=== PATIENT | female | born 1970 | race American Indian/Alaskan Native ===

== ENCOUNTER 2017-02-15 22:25 | Emergency (ER) | payer MEDICAID ==
[2017-02-15 23:43] LABS: Basophils % (Auto) 0.5 % (0.0-1.8); Eosinophils % (Auto) 2.3 % (0.0-4.3); Hematocrit 36.4 % (30.3-42.9); Hemoglobin 11.6 gm/dl (10.1-14.3); Mean Corpuscular HGB Conc 32 % (30-34); Mean Corpuscular Hemoglobin 29 pg (28-32); Mean Corpuscular Volume 91 fl (79-97); Platelet Count 229 K/mm3 (140-440); Red Blood Count 4.02 M/mm3 (3.65-5.03); Red Cell Distribution Width 14.5 % (13.2-15.2); White Blood Count 6.5 K/mm3 (4.5-11.0)
[2017-02-15 23:45] LABS: Alanine Aminotransferase 11 units/L (7-56); Albumin/Globulin Ratio 1.4 %; Alkaline Phosphatase 56 units/L (35-129); BUN/Creatinine Ratio 18.33; Bilirubin,Total < 0.20 mg/dL (0.1-1.2); Blood Urea Nitrogen 11 mg/dL (7-17); Calcium 8.2 mg/dL (8.4-10.2); Carbon Dioxide 25 mmol/L (22-30); Glucose 91 mg/dL (65-100); Total Protein 6.8 g/dL (6.3-8.2)
[2017-02-15 23:46] LABS: Anion Gap 17 mmol/L; Chloride 101.9 mmol/L (98-107); Potassium 4.2 mmol/L (3.6-5.0); Sodium 140 mmol/L (137-145)
[2017-02-16] MEDS ORDERED: NACL 0.9% 1000 ML 1,000 ML IV ONE ×2 (07:29→09:43)
[2017-02-16 07:36] LABS: Bilirubin,Urine NEG (Negative); Blood,Urine LG (Negative); Ketones,Urine NEG (Negative); Leukocyte Esterase,Urine TR (Negative); Mucus,Urine FEW /HPF; Nitrite,Urine NEG (Negative); Protein,Urine <15 mg/dL mg/dL (Negative); Urobilinogen,Urine < 2.0 mg/dL (<2.0)
[2017-02-16 07:38] LABS: RBC,Urine > 182.0 /HPF (0.0-6.0)
--- NOTE | 2017-02-16 07:53 | Emergency Department Report ---
ED Dizziness HPI - General Chief Complaint: Vaginal Bleeding Stated Complaint: VAG BLEEDING/CONSTANT URINATION Time Seen by Provider: 02/16/17 07:17 Source: patient Mode of arrival: Ambulatory Limitations: No Limitations - History of Present Illness Initial Comments: 46 yo female with a past medical history asthma, chronic back pain, fibroids with a history of anemia requiring blood transfusion process the hospital with complaints of lightheadedness 1 week. Symptoms worse with standing and activity. Lightheadedness is intermittent. Patient thought she might be anemic and last required a blood transfusion 2 years ago. She has a history uterine fibroids and has been having intermittent heavy vaginal bleeding. 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 Patient also had a menstrual cycle 2 weeks prior and in early January. Patient was started on progesterone by her primary FREIGHT RATE CLERK. Patient took 3 doses and discontinued the medication because she did not like she felt on the meds. Patient is taking iron tablets. No pain reported. He shouldn't denies chest pain, shortness of breath, nausea, vomiting, diarrhea, melena, hematochezia, or decreased by mouth intake. - Related Data Home Medications Medication Instructions Recorded Confirmed Last Taken Cyclobenzaprine [Flexeril] 10 mg PO BID PRN 07/05/16 02/16/17 Unknown Fluticasone [Flonase] 1 spray NS QDAY 07/05/16 02/16/17 Unknown Pregabalin [Lyrica] 75 mg PO QDAY 07/05/16 02/16/17 Unknown Ferrous Sulfate [Feosol] 325 mg PO BID 02/16/17 02/16/17 Unknown medroxyPROGESTERone ACETATE 5 mg PO QDAY 02/16/17 02/16/17 Unknown [Provera] Previous Rx's Medication Instructions Recorded Last Taken Type Nitrofurantoin [place]/M-Cryst 100 mg PO Q12HR #10 capsule 02/16/17 Unknown Rx [Macrobid CAP] Allergies Allergy/AdvReac Type Severity Reaction Status Date / Time No Known Allergies Allergy Unverified 03/30/15 13:51 ED Review of Systems ROS: Stated complaint: VAG BLEEDING/CONSTANT URINATION Other details as noted in HPI Comment: All other systems reviewed and negative Other: Constitutional: No fevers chills Eyes: No eye pain visual changes ENT: No ear pain or throat pain Neck: Denies pain Respiratory: Denies cough wheezing shortness of breath Cardiovascular: Denies chest pain, palpitations, syncope GI: Denies abdominal pain, nausea, vomiting, diarrhea : Denies dysuria, urinary frequency, or urgency Musculoskeletal: Denies back pain Skin: Denies rash, lesions, erythema Neurologic: Denies headache, numbness, weakness Psychiatric: Denies suicidal ideation, hallucinations ED Past Medical Hx - Past Medical History Hx Congestive Heart Failure: No Hx Diabetes: No Hx Asthma: Yes Hx COPD: No Additional medical history: 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 Fibroids, anemia, 5 herniated discs - Surgical History Past Surgical History?: No - Social History Smoking Status: Never Smoker Substance Use Type: None - Medications Home Medications: Home Medications Medication Instructions Recorded Confirmed Last Taken Type Cyclobenzaprine [Flexeril] 10 mg PO BID PRN 07/05/16 02/16/17 Unknown History Fluticasone [Flonase] 1 spray NS QDAY 07/05/16 02/16/17 Unknown History Pregabalin [Lyrica] 75 mg PO QDAY 07/05/16 02/16/17 Unknown History Ferrous Sulfate [Feosol] 325 mg PO BID 02/16/17 02/16/17 Unknown History Nitrofurantoin [place]/M-Cryst 100 mg PO Q12HR #10 capsule 02/16/17 Unknown Rx [Macrobid CAP] medroxyPROGESTERone ACETATE 5 mg PO QDAY 02/16/17 02/16/17 Unknown History [Provera] ED Physical Exam - General Limitations: No Limitations - Other Other exam information: General: No limitations, patient is alert in no acute distress Head exam: Atraumatic, normocephalic Eyes exam: Normal appearance ENT: Moist mucous membrane, normal oropharynx Neck exam: Normal inspection, full range of motio Respiratory exam: Clear to auscultation bilateral, no wheezes, rales, crackles Cardiovascular: Normal rate and rhythm, normal heart sounds Abdomen: Soft, nondistended, and nontender, with normal bowel sounds, no rebound, or guarding Extremity: Full range of motion normal inspection no deformity Back: Normal Inspection, full range of motion, no tenderness Neurologic: Alert, oriented x3, cranial nerves intact, no motor or sensory deficit Psychiatric: normal affect, normal mood Skin: Warm, dry, intact ED Course Vital Signs 02/15/17 02/16/17 02/16/17 22:53 03:58 05:25 Temperature 97.9 F Pulse Rate 73 72 Respiratory 20 18 Rate Blood Pressure 120/55 Blood Pressure 112/49 [Right] O2 Sat by Pulse 100 100 100 Oximetry 02/16/17 02/16/17 02/16/17 05:31 05:32 06:00 Temperature Pulse Rate 76 Respiratory 16 Rate Blood Pressure 85/41 99/45 Blood Pressure 100/47 [Right] O2 Sat by Pulse 99 100 100 Oximetry 02/16/17 02/16/17 02/16/17 06:33 07:00 07:43 Temperature Pulse Rate Respiratory Rate Blood Pressure 99/45 92/54 104/60 Blood Pressure [Right] O2 Sat by Pulse 96 100 100 Oximetry 02/16/17 02/16/17 02/16/17 08:00 08:30 09:31 Temperature Pulse Rate Respiratory Rate Blood Pressure 97/45 91/44 93/60 Blood Pressure [Right] O2 Sat by Pulse 100 100 100 Oximetry 02/16/17 02/16/17 02/16/17 10:04 10:43 11:00 Temperature Pulse Rate Respiratory Rate Blood Pressure 93/60 93/60 111/76 Blood Pressure [Right] O2 Sat by Pulse 89 100 Oximetry - Reevaluation(s) Reevaluation #1: 02/16/17 11:44 Patient was orthostatic with mild hypotension that improved with IV fluids. ED Medical Decision Making - Lab Data Result diagrams: 02/15/17 23:05 02/15/17 23:05 Lab Results 02/15/17 02/15/17 02/16/17 Range/Units 23:05 23:05 06:50 WBC 6.5 (4.5-11.0) K/mm3 RBC 4.02 (3.65-5.03) M/mm3 Hgb 11.6 (10.1-14.3) gm/dl Hct 36.4 (30.3-42.9) % MCV 91 (79-97) fl MCH 29 (28-32) pg MCHC 32 (30-34) % RDW 14.5 (13.2-15.2) % Plt Count 229 (140-440) K/mm3 Lymph % (Auto) 30.4 (13.4-35.0) % [place] % (Auto) 11.0 H (0.0-7.3) % Eos % (Auto) 2.3 (0.0-4.3) % Baso % (Auto) 0.5 (0.0-1.8) % Lymph # 2.0 (1.2-5.4) K/mm3 [place] # 0.7 (0.0-0.8) K/mm3 Eos # 0.1 (0.0-0.4) K/mm3 Baso # 0.0 (0.0-0.1) K/mm3 Seg Neutrophils % 55.8 (40.0-70.0) % Seg Neutrophils # 3.6 (1.8-7.7) K/mm3 Sodium 140 (137-145) mmol/L Potassium 4.2 (3.6-5.0) mmol/L Chloride 101.9 (98-107) mmol/L Carbon Dioxide 25 (22-30) mmol/L Anion Gap 17 mmol/L BUN 11 (7-17) mg/dL Creatinine 0.6 L (0.7-1.2) mg/dL Estimated GFR > 60 ml/min BUN/Creatinine Ratio 18.33 % Glucose 91 (65-100) mg/dL Calcium 8.2 L (8.4-10.2) mg/dL Total Bilirubin < 0.20 (0.1-1.2) mg/dL AST 14 (5-40) units/L ALT 11 (7-56) units/L Alkaline Phosphatase 56 (35-129) units/L Total Protein 6.8 (6.3-8.2) g/dL Albumin 4.0 (3.9-5) g/dL Albumin/Globulin Ratio 1.4 % Urine Color Yellow (Yellow) Urine Turbidity Clear (Clear) Urine pH 5.0 (5.0-7.0) Ur Specific [place] 1.010 (1.003-1.030) Urine Protein <15 mg/dl (Negative) mg/dL Urine Glucose (UA) Neg (Negative) mg/dL Urine Ketones Neg (Negative) mg/dL Urine Blood Lg (Negative) Urine Nitrite Neg (Negative) Urine Bilirubin Neg (Negative) Urine Urobilinogen < 2.0 (<2.0) mg/dL Ur Leukocyte Esterase Tr (Negative) Urine WBC (Auto) 94.0 H (0.0-6.0) /HPF Urine RBC (Auto) > 182.0 (0.0-6.0) /HPF Urine Mucus Few /HPF Urine Yeast (Budding) Not Reportable Urine HCG, Qual Negative (Negative) - Medical Decision Making Patient is UA shows a large amount of blood in leukocytosis. This could be secondary to vaginal bleeding but she will be covered with antibiotics/Macrobid for UTI as well. Patient symptoms improving with IV fluids. Patient was experiencing orthostatic dizziness however BP was increased with standing and decreases with lying supine. Systolic improved with 2 L of fluids as well as symptoms. Patient has been here in the past and seen by me with orthostatic dizziness that improved with IV hydration. No signs of anemia requiring blood transfusion at this time. She'll be discharged home and encouraged follow-up with her doctors. - Differential Diagnosis dehydration, anemia, orthostatic hypotension Critical Care Time: No Critical care attestation.: If time is entered above; I have spent that time in minutes in the direct care of this critically ill patient, excluding procedure time. ED Disposition Clinical Impression: Orthostatic dizziness, Urine leukocytes increased, Menometrorrhagia, History of uterine fibroid Disposition: DISCHARGED TO HOME OR SELFCARE Is pt being admited?: No Does the pt Need Aspirin: No Condition: Stable Instructions: Uterine Fibroids (ED), Menorrhagia (ED), Lightheadedness (ED), Urinary Tract Infection in Women (ED) Additional Instructions: Continue to drink plenty of fluids. Follow-up with your doctor. Return if symptoms worsen. Prescriptions: Nitrofurantoin [place]/M-Cryst [Macrobid CAP] 100 mg PO Q12HR #10 capsule Referrals: PRIMARY CARE, [Primary Care Provider] - 3-5 Days Time of Disposition: 11:51
[2017-02-16 11:28] VITALS: BP 111/76
[2017-02-16] MEDS ORDERED: MACROBID PO ONE (11:44)
== END 2017-02-16 12:06 | disposition home or self-care (01) ==
LOC: ED 22:25
DX: R42 Dizziness and giddiness (principal); N92.1 Excessive and frequent menstruation with irregular cycle; R82.99 Other abnormal findings in urine; J45.909 Unspecified asthma, uncomplicated; G89.29 Other chronic pain; D25.9 Leiomyoma of uterus, unspecified
CPT/HCPCS: 36415; 80053; 81001; 81025; 85025; 96360; 96361; 99283; J7030

== ENCOUNTER 2017-02-20 20:40 | Emergency (ER) | payer MEDICAID ==
[2017-02-20 21:44] LABS: Anion Gap 14 mmol/L; BUN/Creatinine Ratio 11.42; Blood Urea Nitrogen 8 mg/dL (7-17); Calcium 8.9 mg/dL (8.4-10.2); Carbon Dioxide 28 mmol/L (22-30); Glucose 82 mg/dL (65-100); Potassium 3.8 mmol/L (3.6-5.0); Sodium 139 mmol/L (137-145)
[2017-02-20 21:55] LABS: Basophils % (Auto) 0.4 % (0.0-1.8); Eosinophils % (Auto) 1.3 % (0.0-4.3); Hematocrit 32.9 % (30.3-42.9); Hemoglobin 10.7 gm/dl (10.1-14.3); Mean Corpuscular HGB Conc 33 % (30-34); Mean Corpuscular Hemoglobin 29 pg (28-32); Mean Corpuscular Volume 90 fl (79-97); Platelet Count 239 K/mm3 (140-440); Red Blood Count 3.64 M/mm3 (3.65-5.03); Red Cell Distribution Width 14.2 % (13.2-15.2); White Blood Count 7.7 K/mm3 (4.5-11.0)
[2017-02-20] MEDS ORDERED: ANTIVERT PO ONE (22:20)
--- NOTE | 2017-02-20 22:31 | Emergency Department Report ---
HPI - General Chief Complaint: Dizziness Time Seen by Provider: 02/20/17 22:06 - HPI HPI: Room 4 The patient is a 46-year-old female presenting with a chief complaint of dizziness. The patient states she has a history of menorrhagia and developed vaginal bleeding 5 2016. The patient states she was gone through approximately 10 pads per day. 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 The patient states she took it for 3 days but then stopped because she did not like the way he was making her feel which included dizziness, body feeling heavy and associated nausea. Patient came to the ED 02/14/2017 was diagnosed with a UTI and started on antibiotics. Patient states her vaginal bleeding has slowed down to approximate 7-8 pads daily but she continues to have dizziness and feeling as though her body is having so she decided to come to the ED today. Patient denies any other complaints Location: [see above] Duration: [see above] Quality: Dizziness Severity: Moderate Modifying factors: [see above] Context: [see above] Mode of transportation: Unknown ED Past Medical Hx - Past Medical History Previous Medical History?: Yes Hx Asthma: Yes Additional medical history: 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 Fibroids, anemia, 5 herniated discs - Surgical History Past Surgical History?: Yes - Family History Family history: no significant - Social History Smoking Status: Never Smoker Substance Use Type: None - Medications Home Medications: Home Medications Medication Instructions Recorded Confirmed Last Taken Type Cyclobenzaprine [Flexeril] 10 mg PO BID PRN 07/05/16 02/16/17 Unknown History Fluticasone [Flonase] 1 spray NS QDAY 07/05/16 02/16/17 Unknown History Pregabalin [Lyrica] 75 mg PO QDAY 07/05/16 02/16/17 Unknown History Ferrous Sulfate [Feosol] 325 mg PO BID 02/16/17 02/16/17 Unknown History Nitrofurantoin [place]/M-Cryst 100 mg PO Q12HR #10 capsule 02/16/17 Unknown Rx [Macrobid CAP] medroxyPROGESTERone ACETATE 5 mg PO QDAY 02/16/17 02/16/17 Unknown History [Provera] Meclizine [Antivert] 25 mg PO TID PRN #20 tablet 02/21/17 Unknown Rx ED Review of Systems ROS: Stated complaint: WEAKNESS/REACTION TO MEDS Other details as noted in HPI Comment: All other systems reviewed and negative Constitutional: denies: chills, fever Eyes: denies: eye pain, eye discharge, vision change ENT: denies: ear pain, throat pain Respiratory: denies: cough, shortness of breath, wheezing Cardiovascular: denies: chest pain, palpitations Endocrine: no symptoms reported Gastrointestinal: denies: abdominal pain, nausea, diarrhea Genitourinary: abnormal menses Musculoskeletal: denies: back pain, joint swelling, arthralgia Skin: denies: rash, lesions Neurological: vertigo Psychiatric: denies: anxiety, depression Hematological/Lymphatic: denies: easy bleeding, easy bruising Physical Exam - Physical Exam Vital Signs: Vital Signs 02/20/17 20:44 Temperature 98.5 F Pulse Rate 91 H Respiratory 18 Rate Blood Pressure 132/71 [Right] O2 Sat by Pulse 100 Oximetry Physical Exam: GENERAL: The patient is well-developed well-nourished female lying on stretcher not appearing to be in acute distress. [] HEENT: Normocephalic. Atraumatic. Extraocular motions are intact. Patient has moist mucous membranes. NECK: Supple. No meningitic signs are noted. Trachea midline CHEST/LUNGS: Clear to auscultation. There is no respiratory distress noted. HEART/CARDIOVASCULAR: Regular. There is no tachycardia. There is no gallop rub or murmur. ABDOMEN: Abdomen is soft, nontender. Patient has normal bowel sounds. There is no abdominal distention. SKIN: There is no rash. There is no edema. There is no diaphoresis. NEURO: The patient is awake, alert, and oriented. The patient is cooperative. The patient has no focal neurologic deficits. The patient has normal speech. Cranial nerves II through XII grossly intact, no drift, commercial technician equal bilaterally. No dysmetria noted with finger to nose bilaterally MUSCULOSKELETAL: There is no evidence of acute injury. ED Course Vital Signs 02/20/17 20:44 Temperature 98.5 F Pulse Rate 91 H Respiratory 18 Rate Blood Pressure 132/71 [Right] O2 Sat by Pulse 100 Oximetry ED Medical Decision Making - Lab Data Result diagrams: 02/20/17 21:04 02/20/17 21:04 Laboratory Tests 02/20/17 02/20/17 02/20/17 21:04 21:04 21:04 WBC 7.7 RBC 3.64 L Hgb 10.7 Hct 32.9 MCV 90 MCH 29 MCHC 33 RDW 14.2 Plt Count 239 Lymph % (Auto) 25.4 [place] % (Auto) 9.9 H Eos % (Auto) 1.3 Baso % (Auto) 0.4 Lymph # 2.0 [place] # 0.8 Eos # 0.1 Baso # 0.0 Seg Neutrophils % 63.0 Seg Neutrophils # 4.9 Sodium 139 Potassium 3.8 Chloride 101.0 Carbon Dioxide 28 Anion Gap 14 BUN 8 Creatinine 0.7 Estimated GFR > 60 BUN/Creatinine Ratio 11.42 Glucose 82 Calcium 8.9 Total Creatine Kinase CK-MB (CK-2) CK-MB (CK-2) Rel Index Troponin T HCG, Qual Negative Urine Color Urine Turbidity Urine pH Ur Specific [place] Urine Protein Urine Glucose (UA) Urine Ketones Urine Blood Urine Nitrite Urine Bilirubin Urine Urobilinogen Ur Leukocyte Esterase Urine WBC (Auto) Urine RBC (Auto) 02/20/17 02/20/17 21:04 22:30 WBC RBC Hgb Hct MCV MCH MCHC RDW Plt Count Lymph % (Auto) [place] % (Auto) Eos % (Auto) Baso % (Auto) Lymph # [place] # Eos # Baso # Seg Neutrophils % Seg Neutrophils # Sodium Potassium Chloride Carbon Dioxide Anion Gap BUN Creatinine Estimated GFR BUN/Creatinine Ratio Glucose Calcium Total Creatine Kinase 101 CK-MB (CK-2) 2.2 CK-MB (CK-2) Rel Index 2.1 Troponin T < 0.010 HCG, Qual Urine Color Straw Urine Turbidity Clear Urine pH 6.0 Ur Specific [place] 1.002 L Urine Protein <15 mg/dl Urine Glucose (UA) Neg Urine Ketones Neg Urine Blood Lg Urine Nitrite Neg Urine Bilirubin Neg Urine Urobilinogen < 2.0 Ur Leukocyte Esterase Neg Urine WBC (Auto) < 1.0 Urine RBC (Auto) < 1.0 - EKG Data -: EKG Interpreted by Me EKG shows normal: sinus rhythm Rate: normal - EKG Data When compared to previous EKG there are: no significant change Interpretation: unchanged when compared t (07/04/2016) - Radiology Data Radiology results: report reviewed (CT head), image reviewed (CT head) CT head (read by radiologist)-no abnormalities are seen - Differential Diagnosis vertigo, orthostatic hypotension, symptomatic anemia, ACS, rhabdomyolysis Critical care attestation.: If time is entered above; I have spent that time in minutes in the direct care of this critically ill patient, excluding procedure time. ED Disposition Clinical Impression: Dizziness Disposition: DISCHARGED TO HOME OR SELFCARE Is pt being admited?: No Does the pt Need Aspirin: No Condition: Stable Instructions: Vertigo (ED), Dizziness (ED) Additional Instructions: Return to the emergency department immediately should you develop worsening symptoms, fever, inability to tolerate food or liquid or any other concerns. Prescriptions: Meclizine [Antivert] 25 mg PO TID PRN #20 tablet PRN Reason: Vertigo Referrals: PRIMARY CARE, [Primary Care Provider] - 3-5 Days neurology, your neurologist [Other] - 3-5 Days (Keep your appointment with your neurologist for further evaluation) Time of Disposition: 00:32
[2017-02-20 22:43] LABS: Creatine Kinase MB 2.2 ng/mL (0.0-4.0)
[2017-02-20 22:44] LABS: Creatine Kinase 101 units/L (30-135)
[2017-02-20 22:57] LABS: Bilirubin,Urine NEG (Negative); Blood,Urine LG (Negative); Ketones,Urine NEG (Negative); Leukocyte Esterase,Urine NEG (Negative); Nitrite,Urine NEG (Negative); Protein,Urine <15 mg/dL mg/dL (Negative); RBC,Urine < 1.0 /HPF (0.0-6.0); Urobilinogen,Urine < 2.0 mg/dL (<2.0); WBC,Urine < 1.0 /HPF (0.0-6.0)
--- NOTE | 2017-02-20 23:13 | Cat Scan Report ---
FINAL REPORT PROCEDURE: CT HEAD/BRAIN WO CON TECHNIQUE: Computerized tomography of the head was performed without contrast material. HISTORY: dizziness COMPARISON: No prior studies are available for comparison. FINDINGS: Visualized portions of the paranasal sinuses and mastoid air cells are clear. No calvarial fracture is seen. Cerebral ventricles are normal in size. No acute intracranial hemorrhage or mass effect is seen. No CVA is seen. IMPRESSION: No abnormalities are seen.
[2017-02-21] MEDS ORDERED: NACL 0.9% 1000 ML 1,000 ML IV ONE ×2 (00:17)
[2017-02-21 01:14] VITALS: BP 96/47
[2017-02-21] MEDS ORDERED: XYLOCAINE 1% 20 mL INFILTRATI ONE (01:28)
[2017-02-21] MEDS ORDERED: HYDROGEN PEROXIDE TP ONE (01:30)
== END 2017-02-21 01:32 | disposition home or self-care (01) ==
LOC: ED 20:40
DX: R42 Dizziness and giddiness (principal); J45.909 Unspecified asthma, uncomplicated; G89.29 Other chronic pain
CPT/HCPCS: 36415; 70450; 80048; 81001; 82550; 82553; 84484; 84703; 85025; 93005; 93010; 96360; 99284; J7030

== ENCOUNTER 2017-04-14 21:57 | Emergency (ER) | payer MEDICAID ==
[2017-04-15 00:01] LABS: Basophils % (Auto) 0.4 % (0.0-1.8); Eosinophils % (Auto) 1.5 % (0.0-4.3); Hematocrit 31.2 % (30.3-42.9); Hemoglobin 10.1 gm/dl (10.1-14.3); Mean Corpuscular HGB Conc 32 % (30-34); Mean Corpuscular Hemoglobin 29 pg (28-32); Mean Corpuscular Volume 91 fl (79-97); Platelet Count 262 K/mm3 (140-440); Red Blood Count 3.42 M/mm3 (3.65-5.03); Red Cell Distribution Width 13.9 % (13.2-15.2); White Blood Count 7.6 K/mm3 (4.5-11.0)
[2017-04-15 00:19] LABS: Anion Gap 14 mmol/L; BUN/Creatinine Ratio 11.66; Blood Urea Nitrogen 7 mg/dL (7-17); Calcium 7.9 mg/dL (8.4-10.2); Carbon Dioxide 25 mmol/L (22-30); Chloride 103.7 mmol/L (98-107); Glucose 88 mg/dL (65-100); Potassium 3.3 mmol/L (3.6-5.0); Sodium 139 mmol/L (137-145)
[2017-04-15 00:29] LABS: Bacteria,Urine 1+ /HPF (Negative); Bilirubin,Urine NEG (Negative); Blood,Urine LG (Negative); Ketones,Urine NEG (Negative); Leukocyte Esterase,Urine NEG (Negative); Mucus,Urine FEW /HPF; Nitrite,Urine NEG (Negative); Protein,Urine <15 mg/dL mg/dL (Negative); Urobilinogen,Urine < 2.0 mg/dL (<2.0)
[2017-04-15 00:35] LABS: Alanine Aminotransferase 10 units/L (7-56); Albumin 3.8 g/dL (3.9-5); Albumin/Globulin Ratio 1.2 %; Alkaline Phosphatase 50 units/L (35-129); Bilirubin,Total < 0.20 mg/dL (0.1-1.2); Total Protein 6.9 g/dL (6.3-8.2)
[2017-04-15 00:38] LABS: Bilirubin,Direct < 0.2 mg/dL (0-0.2)
--- NOTE | 2017-04-15 07:43 | XRay Report ---
Chest 2 views: History: Lower extremity swelling. CHF. Findings: Normal cardiomediastinal silhouette. Trachea is midline. No consolidation, pneumothorax or pleural effusion. Impression: No acute cardiopulmonary findings.
[2017-04-15] MEDS ORDERED: K-DUR PO ONE (07:49)
--- NOTE | 2017-04-15 08:12 | Emergency Department Report ---
HPI - General Chief Complaint: Extremity Injury, Lower Time Seen by Provider: 04/15/17 07:48 - HPI HPI: This is a 46-year-old Afro-[place] female who presents to the emergency department with a one-day history of swelling in her ankles. This concerned her as she says that the last time this happened she required infusions from anemia. She has a history of fibroids that have caused her to have prolonged menstrual cycles in the past and thus causing the anemia. She says her menstrual cycle is currently actually irregular for her as she only had 2 days of vaginal bleeding which usually has 14. She denies any abdominal pain, chest pain, shortness of breath, nausea, vomiting or fever. She is not taken anything for symptoms prior to presentation. Her primary care doctor is a Dr. Linares through [facility]. No recent travel or sick contacts at home. ED Past Medical Hx - Past Medical History Previous Medical History?: Yes Hx Congestive Heart Failure: No Hx Diabetes: No Hx Asthma: Yes Hx COPD: No Additional medical history: 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 Fibroids, anemia, 5 herniated discs - Surgical History Past Surgical History?: No - Social History Smoking Status: Never Smoker Substance Use Type: None - Medications Home Medications: Home Medications Medication Instructions Recorded Confirmed Last Taken Type Cyclobenzaprine [Flexeril] 10 mg PO BID PRN 07/05/16 02/20/17 02/20/17 History Fluticasone [Flonase] 1 spray NS QDAY 07/05/16 02/20/17 02/20/17 History Pregabalin [Lyrica] 75 mg PO QDAY 07/05/16 02/20/17 02/20/17 History Ferrous Sulfate [Feosol] 325 mg PO BID 02/16/17 02/20/17 02/20/[address] [place]/M-Cryst 100 mg PO Q12HR #10 capsule 02/16/17 02/20/17 Rx [Macrobid CAP] medroxyPROGESTERone ACETATE 5 mg PO QDAY 02/16/17 02/20/17 02/20/17 History [Provera] Meclizine [Antivert] 25 mg PO TID PRN #20 tablet 02/21/17 Unknown Rx ED Review of Systems ROS: Stated complaint: ANKLE EDEMA Other details as noted in HPI Comment: All other systems reviewed and negative Constitutional: denies: chills, fever Eyes: denies: eye pain, eye discharge, vision change ENT: denies: ear pain, throat pain Respiratory: denies: cough, shortness of breath, wheezing Cardiovascular: edema. denies: chest pain Gastrointestinal: denies: abdominal pain, nausea, diarrhea Genitourinary: denies: urgency, dysuria, discharge Musculoskeletal: denies: back pain, joint swelling, arthralgia Skin: denies: rash, lesions Neurological: denies: headache, weakness, paresthesias Physical Exam - Physical Exam Vital Signs: Vital Signs 04/14/17 04/14/17 22:06 22:22 Temperature 98.2 F 98.2 F Pulse Rate 96 H 96 H Respiratory 20 18 Rate Blood Pressure 120/70 Blood Pressure 120/70 [Right] O2 Sat by Pulse 100 100 Oximetry Physical Exam: GENERAL: The patient is well-developed well-nourished. HEENT: Normocephalic. Atraumatic. Extraocular motions are intact. Patient has moist mucous membranes. Pupils equal reactive to light bilaterally. NECK: Supple. Trachea is midline. CHEST/LUNGS: Clear to auscultation. There is no respiratory distress noted. HEART/CARDIOVASCULAR: Regular. There is no tachycardia. There is no gallop rub or murmur. ABDOMEN: Abdomen is soft, nontender. Patient has normal bowel sounds. There is no abdominal distention. SKIN: There is very mild nonpitting swelling to the bilateral ankles. No rash seen. Skin is warm and dry. NEURO: The patient is awake, alert, and oriented. The patient is cooperative. The patient has no focal neurologic deficits. The patient has normal speech and gait. MUSCULOSKELETAL: There is no tenderness or deformity. There is no limitation range of motion. There is no evidence of acute injury. Cap refill less than 2 seconds. Pedal pulses +2 over 4 bilaterally. ED Course Vital Signs 04/14/17 04/14/17 22:06 22:22 Temperature 98.2 F 98.2 F Pulse Rate 96 H 96 H Respiratory 20 18 Rate Blood Pressure 120/70 Blood Pressure 120/70 [Right] O2 Sat by Pulse 100 100 Oximetry ED Medical Decision Making - Lab Data Result diagrams: 04/14/17 23:20 04/14/17 23:20 - Radiology Data Radiology results: image reviewed interpreted by me: Chest x-ray did not show any acute process. Heart is normal shape and size. No effusions. No pneumothorax. No signs of pneumonia seen. - Medical Decision Making 46-year-old female presents the emergency department with the complaint of bilateral ankle swelling going on for about the past 24 hours. There is no chest pain, shortness of breath or any complaints of respiratory distress. There is no signs of any rash or cellulitis. Cap refill less than 2 seconds and good pedal pulses. Nonpitting swelling that is very mild. Patient's labs are mostly unremarkable. There is mild anemia with a hemoglobin of 10 but not that requires any transfusion. A chest x-ray was done last night that did not show any pleural effusions, pneumonia or any acute process. There is a low suspicion that the ankle swelling is due to any type of DVT. Patient does not appear to be in volume overload or CHF. Vital signs stable throughout ED course including being afebrile and no hypoxia. The rest the patient's labs are unremarkable. She appears safe for discharge home at this time. She will use compression and elevation and has been encouraged to follow-up with her primary care physician, Dr. Gao, in the next few days. She will return to the ER with any worsening of her symptoms or any acute distress. - Differential Diagnosis edema, venous stasis, cellulitis Critical Care Time: No Critical care attestation.: If time is entered above; I have spent that time in minutes in the direct care of this critically ill patient, excluding procedure time. ED Disposition Clinical Impression: Mild anemia Ankle swelling Qualifiers: Laterality: unspecified laterality Qualified Code(s): M25.473 - Effusion, unspecified ankle Disposition: DC-01 TO HOME OR SELFCARE Is pt being admited?: No Condition: Stable Instructions: Leg Edema (ED), Anemia (ED) Additional Instructions: Please follow-up with your primary care doctor in the next few days. Return to the emergency department with any worsening of her symptoms, especially if the swelling begins going up the leg, has color change or he develop any chest pain or shortness of breath or any acute distress. Referrals: PRIMARY CARE, [Primary Care Provider] - 3-5 Days Time of Disposition: 08:17
[2017-04-15 09:06] VITALS: BP 126/71
== END 2017-04-15 09:07 | disposition home or self-care (01) ==
LOC: ED 21:57
DX: M25.472 Effusion, left ankle (principal); M25.471 Effusion, right ankle; D64.9 Anemia, unspecified; J45.909 Unspecified asthma, uncomplicated; G89.29 Other chronic pain
CPT/HCPCS: 36415; 71020; 80048; 80074; 81001; 83880; 84702; 85025

== ENCOUNTER 2017-07-21 15:08 | Emergency (ER) | payer MEDICAID ==
[2017-07-21 15:36] VITALS: BP 117/63
[2017-07-21 16:43] LABS: Basophils % (Auto) 0.7 % (0.0-1.8); Eosinophils % (Auto) 2.1 % (0.0-4.3); Hematocrit 27.2 % (30.3-42.9); Hemoglobin 8.8 gm/dl (10.1-14.3); Mean Corpuscular HGB Conc 32 % (30-34); Mean Corpuscular Hemoglobin 29 pg (28-32); Mean Corpuscular Volume 89 fl (79-97); Platelet Count 264 K/mm3 (140-440); Red Blood Count 3.07 M/mm3 (3.65-5.03); Red Cell Distribution Width 13.7 % (13.2-15.2); White Blood Count 4.7 K/mm3 (4.5-11.0)
== END 2017-07-22 00:52 | disposition left against medical advice (07) ==
LOC: ED 15:08
DX: R53.1 Weakness (principal); Z53.21 Procedure and treatment not carried out due to patient leaving prior to being seen by health care provider
CPT/HCPCS: 36415; 84702; 85025; 86850; 86900; 86901

== ENCOUNTER 2017-07-24 20:23 | Emergency (ER) | payer MEDICAID ==
[2017-07-25 00:56] LABS: Basophils % (Auto) 0.3 % (0.0-1.8); Eosinophils % (Auto) 0.9 % (0.0-4.3); Hematocrit 31.1 % (30.3-42.9); Hemoglobin 9.8 gm/dl (10.1-14.3); Mean Corpuscular HGB Conc 32 % (30-34); Mean Corpuscular Hemoglobin 28 pg (28-32); Mean Corpuscular Volume 90 fl (79-97); Platelet Count 333 K/mm3 (140-440); Red Blood Count 3.45 M/mm3 (3.65-5.03); Red Cell Distribution Width 14.2 % (13.2-15.2); White Blood Count 7.7 K/mm3 (4.5-11.0)
[2017-07-25 01:16] LABS: Anion Gap 16 mmol/L; BUN/Creatinine Ratio 8; Blood Urea Nitrogen 5 mg/dL (7-17); Calcium 8.6 mg/dL (8.4-10.2); Carbon Dioxide 26 mmol/L (22-30); Chloride 102.7 mmol/L (98-107); Glucose 82 mg/dL (65-100); Potassium 3.8 mmol/L (3.6-5.0); Sodium 141 mmol/L (137-145)
[2017-07-25 04:53] LABS: Bacteria,Urine 1+ /HPF (Negative); Bilirubin,Urine NEG (Negative); Blood,Urine LG (Negative); Ketones,Urine NEG (Negative); Leukocyte Esterase,Urine NEG (Negative); Mucus,Urine 1+ /HPF; Nitrite,Urine NEG (Negative); Protein,Urine <15 mg/dL mg/dL (Negative); Urobilinogen,Urine < 2.0 mg/dL (<2.0)
[2017-07-25 05:01] LABS: WBC,Urine < 1.0 /HPF (0.0-6.0)
--- NOTE | 2017-07-25 10:37 | Emergency Department Report ---
HPI - General Chief Complaint: Dizziness Time Seen by Provider: 07/25/17 10:33 - HPI HPI: patient with h/o anemia, secondary to fibroid bleeding, is here because she is dizzy and wants to check that her hgb is not too low. ED Past Medical Hx - Past Medical History Previous Medical History?: Yes Hx Congestive Heart Failure: No Hx Diabetes: No Hx Asthma: Yes Hx COPD: No Additional medical history: 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 Fibroids, anemia, 5 herniated discs - Social History Smoking Status: Never Smoker - Medications Home Medications: Home Medications Medication Instructions Recorded Confirmed Last Taken Type Cyclobenzaprine [Flexeril] 10 mg PO BID PRN 07/05/16 02/20/17 02/20/17 History Fluticasone [Flonase] 1 spray NS QDAY 07/05/16 02/20/17 02/20/17 History Pregabalin [Lyrica] 75 mg PO QDAY 07/05/16 02/20/17 02/20/17 History Nitrofurantoin [place]/M-Cryst 100 mg PO Q12HR #10 capsule 02/16/17 02/20/17 Rx [Macrobid CAP] medroxyPROGESTERone ACETATE 5 mg PO QDAY 02/16/17 02/20/17 02/20/17 History [Provera] Meclizine [Antivert] 25 mg PO TID PRN #20 tablet 02/21/17 Unknown Rx Ferrous Sulfate [Feosol 325 MG tab] 325 mg PO BID #60 tablet 07/25/17 Unknown Rx ED Review of Systems ROS: Stated complaint: TRIMMORS,HEAVY BLEEDING Other details as noted in HPI Comment: All other systems reviewed and negative Respiratory: no symptoms reported Cardiovascular: as per HPI Endocrine: no symptoms reported Physical Exam - Physical Exam Vital Signs: Vital Signs 07/24/17 07/24/17 07/25/17 23:18 23:44 05:50 Temperature 98.1 F 98.1 F 97.5 F L Pulse Rate 78 76 Respiratory 18 18 18 Rate Blood Pressure 107/50 107/50 103/46 Blood Pressure [Left] O2 Sat by Pulse 100 100 Oximetry 07/25/17 10:35 Temperature 98.1 F Pulse Rate 80 Respiratory 18 Rate Blood Pressure Blood Pressure 98/51 [Left] O2 Sat by Pulse 100 Oximetry Physical Exam: Physical Exam: Physical Exam: - General Limitations: No Limitations General appearance: alert, in no apparent distress. - Head Head exam: Present: atraumatic, normocephalic - Eye Eye exam: Present: normal appearance - ENT ENT exam: Present: mucous membranes moist - Neck Neck exam: Present: normal inspection - Respiratory Respiratory exam: Present: normal lung sounds bilaterally. Absent: respiratory distress - Cardiovascular Cardiovascular Exam: Present: normal rhythm, normal rate. Absent: systolic murmur, diastolic murmur, rubs, gallop - GI/Abdominal GI/Abdominal exam: Present: soft, normal bowel sounds - Extremities Exam Extremities exam: Present: normal inspection - Back Exam Back exam: Present: normal inspection - Neurological Exam Neurological exam: Present: alert, oriented X3 - Psychiatric Psychiatric exam: normal affect and mood - Skin Skin exam: Present: warm, dry, intact, normal color. Absent: rash ED Course Vital Signs 07/24/17 07/24/17 07/25/17 23:18 23:44 05:50 Temperature 98.1 F 98.1 F 97.5 F L Pulse Rate 78 76 Respiratory 18 18 18 Rate Blood Pressure 107/50 107/50 103/46 Blood Pressure [Left] O2 Sat by Pulse 100 100 Oximetry 07/25/17 10:35 Temperature 98.1 F Pulse Rate 80 Respiratory 18 Rate Blood Pressure Blood Pressure 98/51 [Left] O2 Sat by Pulse 100 Oximetry ED Medical Decision Making - Lab Data Result diagrams: 07/25/17 00:35 07/25/17 00:35 Critical care attestation.: If time is entered above; I have spent that time in minutes in the direct care of this critically ill patient, excluding procedure time. ED Disposition Clinical Impression: Anemia Qualifiers: Anemia type: iron deficiency Iron deficiency anemia type: chronic blood loss Qualified Code(s): D50.0 - Iron deficiency anemia secondary to blood loss ( chronic) Disposition: TO HOME OR SELFCARE Is pt being admited?: No Does the pt Need Aspirin: No Condition: Good Instructions: Anemia (ED) Prescriptions: Ferrous Sulfate [Feosol 325 MG tab] 325 mg PO BID #60 tablet Referrals: SERA MANJARREZ MD [Staff Physician] - 3-5 Days PRIMARY CARE, [Primary Care Provider] - 3-5 Days
[2017-07-25 11:00] VITALS: BP 100/55
== END 2017-07-25 11:00 | disposition home or self-care (01) ==
LOC: ED 20:23
DX: D50.0 Iron deficiency anemia secondary to blood loss (chronic) (principal)
CPT/HCPCS: 36415; 80048; 81001; 84484; 84702; 85025; 86850; 86900; 86901; 93005; 93010; 99284

== ENCOUNTER 2017-09-15 04:51 | Emergency (ER) | payer MEDICAID ==
[2017-09-15 04:57] VITALS: BP 113/55
[2017-09-15] MEDS ORDERED: TORADOL IM ONE (09:42)
[2017-09-15] MEDS ORDERED: DELTASONE PO ONE (09:42)
--- NOTE | 2017-09-15 09:59 | Emergency Department Report ---
HPI - General Chief Complaint: Back Pain/Injury Time Seen by Provider: 09/15/17 08:50 - HPI HPI: Patient is a 47-year-old female with a history of fibromyalgia and herniated disc 11 years who presents to ED complaining of worsening throbbing sharp localized to her many left back region for the past 3 days. Patient states she sees her primary care doctor sure out of [place]. She states she takes Effexor and Lyrica car daily and that has not helped subside her pain. Patient states she cannot recall if she is wrapped in the wrong pad. She somehow twisted it but feels almost spasmodic in nature that comes and goes throughout the day. Patient states she is able to lift hands without problem. She denies any chest pain, shortness of breath, dizziness, head pain, referred injury or trauma ED Past Medical Hx - Past Medical History Previous Medical History?: Yes Hx Congestive Heart Failure: No Hx Diabetes: No Hx Asthma: Yes Hx COPD: No Additional medical history: 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 Fibroids, anemia, 5 herniated discs - Surgical History Past Surgical History?: No - Social History Smoking Status: Never Smoker Substance Use Type: None - Medications Home Medications: Home Medications Medication Instructions Recorded Confirmed Last Taken Type Cyclobenzaprine [Flexeril] 10 mg PO BID PRN 07/05/16 02/20/17 02/20/17 History Fluticasone [Flonase] 1 spray NS QDAY 07/05/16 02/20/17 02/20/17 History Pregabalin [Lyrica] 75 mg PO QDAY 07/05/16 02/20/17 02/20/17 History Nitrofurantoin [place]/M-Cryst 100 mg PO Q12HR #10 capsule 02/16/17 02/20/17 Rx [Macrobid CAP] medroxyPROGESTERone ACETATE 5 mg PO QDAY 02/16/17 02/20/17 02/20/17 History [Provera] Meclizine [Antivert] 25 mg PO TID PRN #20 tablet 02/21/17 Unknown Rx Ferrous Sulfate [Feosol 325 MG tab] 325 mg PO BID #60 tablet 07/25/17 Unknown Rx Diclofenac [Eugenie Contreras] 75 mg PO BID #20 tablet 09/15/17 Unknown Rx Tizanidine HCl [Zanaflex] 2 mg PO BID PRN #20 capsule 09/15/17 Unknown Rx ED Review of Systems ROS: Stated complaint: BACK PAIN Other details as noted in HPI Constitutional: denies: chills, fever Eyes: denies: eye pain, eye discharge, vision change ENT: denies: ear pain, throat pain Respiratory: denies: cough, shortness of breath, wheezing Cardiovascular: denies: chest pain, palpitations Endocrine: no symptoms reported Gastrointestinal: denies: abdominal pain, nausea, diarrhea Genitourinary: denies: urgency, dysuria, discharge Musculoskeletal: denies: back pain, joint swelling, arthralgia Skin: denies: rash, lesions Neurological: denies: headache, weakness, paresthesias Psychiatric: denies: anxiety, depression Hematological/Lymphatic: denies: easy bleeding, easy bruising Physical Exam - Physical Exam Vital Signs: Vital Signs 09/15/17 09/15/17 04:54 05:02 Temperature 98.1 F 98.1 F Pulse Rate 102 H 100 H Respiratory 20 20 Rate Blood Pressure 113/55 113/55 O2 Sat by Pulse 100 100 Oximetry Physical Exam: GENERAL: Alert and oriented x3, no apparent distress, Normal Gait, atraumatic. HEAD: Head is normocephalic and a-traumatic. EYES: Extra ocular muscles are intact. Pupils are equal, round, and reactive to light and accommodation. NECK: Supple. Non edematous, No carotid bruits. No lymphadenopathy or thyromegaly. No C-spine tenderness LUNGS: Symetrical with respiration, No wheezing, no rales or crackles, CTAB. HEART: S1, S2 present, regular rate and rhythm without murmur, no rubs, no gallops. Non tender to palpation ABDOMEN: No organomegaly was noted,Positive bowel sounds, soft, and non- distended. . Nontender to palpation on all Quadrants, NO CVA tenderness. BACK: Full range of motion, no spinal tenderness, nontender to palpation. EXTREMITIES/MUSCULOSKELETAL: No cyanosis, clubbing, rash, lesions or edema. Full ROM bilaterally. UE/LE Pulses 2+ bilaterally. UE 5+ strength bilaterally NEUROLOGIC: The patient is cooperative with no focal neurologic deficits. Cranial nerves II through XII are grossly intact. Normal speech. Normal sensation in bilateral upper and lower extremities, No loss of sensation, PSYCHIATRIC: Mood is congruent with affect, denies suicidal or homicidal ideations. SKIN: Warm and dry, No lesions, No ulceration or induration present. ED Course Vital Signs 09/15/17 09/15/17 04:54 05:02 Temperature 98.1 F 98.1 F Pulse Rate 102 H 100 H Respiratory 20 20 Rate Blood Pressure 113/55 113/55 O2 Sat by Pulse 100 100 Oximetry ED Medical Decision Making - Medical Decision Making 47-year-old female presents with chronic pain ED course: Patient received Toradol and prednisone 60 ED I discussed with patient management and follow-up with her primary care doctor referral. I discussed with patient to continue taking her medication as prescribed by her primary care doctor. I discussed the patient to stop the Flexeril and given another medication and also muscle spasms. I discussed the patient and she has no worsening symptoms or new symptoms to return to ED immediately Critical care attestation.: If time is entered above; I have spent that time in minutes in the direct care of this critically ill patient, excluding procedure time. ED Disposition Clinical Impression: DJD (degenerative joint disease) of thoracic spine Qualifiers: Spinal osteoarthritis complication: with radiculopathy Qualified Code(s): M47.24 - Other spondylosis with radiculopathy, thoracic region Chronic back pain Qualifiers: Back pain location: thoracic back pain Back pain laterality: left Qualified Code(s): M54.6 - Pain in thoracic spine Disposition: DC-01 TO HOME OR SELFCARE Is pt being admited?: No Does the pt Need Aspirin: No Condition: Stable Instructions: Thoracic Disc Herniation (ED), Trigger Point Pain (ED), Musculoskeletal Pain (ED), Heat Pack Application (ED) Additional Instructions: Make sure to follow up with the primary care physician as discussed. Take all your medications as you've been prescribed. If you have any worsening symptoms or develop new symptoms please return to ED immediately. Prescriptions: Diclofenac Dr [Voltaren Dr] 75 mg PO BID #20 tablet Tizanidine HCl [Zanaflex] 2 mg PO BID PRN #20 capsule PRN Reason: Muscle Spasm Referrals: PRIMARY MD MARK [Primary Care Provider] - 3-5 Days [facility] [Outside] - 3-5 Days [facility] [Outside] - 3-5 Days RED WOODRUFF MD [Staff Physician] - 3-5 Days Forms: Accompanied Note, Work/School Release Form Time of Disposition: 10:30
== END 2017-09-15 10:46 | disposition home or self-care (01) ==
LOC: ED 04:51
DX: M47.24 Other spondylosis with radiculopathy, thoracic region (principal); M79.7 Fibromyalgia; J45.909 Unspecified asthma, uncomplicated; D21.9 Benign neoplasm of connective and other soft tissue, unspecified; G89.29 Other chronic pain
CPT/HCPCS: 96372; 99282; J1885; J7512

== ENCOUNTER 2017-11-18 23:48 | Emergency (ER) | payer MEDICAID ==
[2017-11-19 01:52] LABS: Basophils % (Auto) 0.5 % (0.0-1.8); Eosinophils # (Auto) 0.1 K/mm3 (0.0-0.4); Eosinophils % (Auto) 0.8 % (0.0-4.3); Hematocrit 28.5 % (30.3-42.9); Hemoglobin 9.1 gm/dl (10.1-14.3); Lymphocytes % (Auto) 11.5 % (13.4-35.0); Mean Corpuscular HGB Conc 32 % (30-34); Mean Corpuscular Hemoglobin 27 pg (28-32); Mean Corpuscular Volume 86 fl (79-97); Monocytes # (Auto) 0.6 K/mm3 (0.0-0.8); Platelet Count 250 K/mm3 (140-440); Red Blood Count 3.33 M/mm3 (3.65-5.03); Red Cell Distribution Width 16.1 % (13.2-15.2)
[2017-11-19] MEDS ORDERED: NACL 0.9% 1000 ML 2,000 ML IV ONE (02:30)
[2017-11-19] MEDS ORDERED: NACL 0.9% 1000 ML 1,000 ML ONE ×2 (02:36→03:13)
[2017-11-19 02:41] VITALS: BP 101/50
--- NOTE | 2017-11-19 04:23 | Emergency Department Report ---
HPI - General Chief Complaint: Vaginal Bleeding Time Seen by Provider: 11/19/17 03:54 - HPI HPI: The patient's 47-year-old female with a history of fibroids and anemia secondary to chronic vaginal bleeding, whom presents for evaluation of lightheadedness and vaginal bleeding recurrence. The patient reports constant and severe lightheadedness at 7 PM earlier tonight, approximately 8 hours prior to my evaluation, exacerbated with ambulation or standing, improved with supine positioning. Her daughter shares that she briefly passed out. She has experienced heavy vaginal bleeding for the past one day, and intermittent light g for the past week. She denies injury or pain, headache, neck pain, chest pain , dyspnea, back pain, flank pain, pain in the extremities, vomiting, diarrhea, paresthesia, seizure-like activity, or other focal neurological deficit. ED Past Medical Hx - Past Medical History Previous Medical History?: Yes Hx Congestive Heart Failure: No Hx Diabetes: No Hx Asthma: Yes Hx COPD: No Additional medical history: 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 Fibroids, anemia, 5 herniated discs - Surgical History Past Surgical History?: No - Social History Smoking Status: Never Smoker - Medications Home Medications: Home Medications Medication Instructions Recorded Confirmed Last Taken Type Cyclobenzaprine [Flexeril] 10 mg PO BID PRN 07/05/16 02/20/17 02/20/17 History Fluticasone [Flonase] 1 spray NS QDAY 07/05/16 02/20/17 02/20/17 History Pregabalin [Lyrica] 75 mg PO QDAY 07/05/16 02/20/17 02/20/17 History Nitrofurantoin [place]/M-Cryst 100 mg PO Q12HR #10 capsule 02/16/17 02/20/17 Rx [Macrobid CAP] Ferrous Sulfate [Feosol 325 MG tab] 325 mg PO BID #60 tablet 07/25/[address] [Eugenie Dr] 75 mg PO BID #20 tablet 09/15/17 Unknown Rx Tizanidine HCl [Zanaflex] 2 mg PO BID PRN #20 capsule 09/15/17 Unknown Rx Meclizine [Antivert] 25 mg PO TID PRN #20 tablet 11/19/17 Unknown Rx medroxyPROGESTERone ACETATE 5 mg PO QDAY #5 tablet 11/19/17 Unknown Rx [Provera] ED Review of Systems ROS: Stated complaint: VAG BLEED,WEAKNESS Other details as noted in HPI Constitutional: denies: fever ENT: denies: throat or neck pain Respiratory: denies: cough, shortness of breath Cardiovascular: denies: chest pain Endocrine: denies unexplained weight loss or gain Gastrointestinal: denies: abdominal pain, nausea Genitourinary: reports VB denies: dysuria Musculoskeletal: denies: leg swelling Skin: denies: rash Neurological: denies: headache Hematological/Lymphatic: denies: easy bleeding or easy bruising Psych: denies sadness or hopelessness Physical Exam - Physical Exam Vital Signs: Vital Signs 11/19/17 11/19/17 00:25 02:23 Temperature 97.9 F 98.5 F Pulse Rate 96 H 93 H Respiratory 18 16 Rate Blood Pressure 104/33 Blood Pressure 101/50 [Left] O2 Sat by Pulse 100 100 Oximetry Physical Exam: General: well-nourished, well-developed, no acute distress Head: Normocephalic, atraumatic Eyes: normal sclera, PERRL, EOM intact ENT: Mucous membranes are pale and dry Neck: No neck stiffness, no cervical adenopathy Respiratory: Breath sounds equal bilaterally, no wheezing, rales, or rhonchi Cardio: S1 and S2 present, no murmurs, rubs, gallops, capillary refill is delayed Abdomen: Normoactive bowel sounds, soft abdomen, no rigidity, no guarding or rebound tenderness Chest WALL/Back: No tenderness to palpation of the chest wall, no CVA tenderness with percussion, no flank ecchymosis, redness, or swelling Musc: No pitting edema Skin: No rash Neuro: alert oriented x4, normal cognition, speech normal, no facial drooping, no uvula or tongue deviation on protrusion, no deficit with rotation of neck or shoulder shrug, no obvious gross motor deficit in the upper or lower extremities with flexion or extension at the shoulder, elbow, wrist, hip, knee, or ankle bilaterally, no obvious gross sensation deficit to crude touch or 2 pt discrimination, 2+ symmetric reflexes on DTR testing, no coordination deficit with [id number] or [id number] testing, romberg negative, patient able to to ambulate without abnormal gait Psych: Normal affect ED Course Vital Signs 11/19/17 11/19/17 00:25 02:23 Temperature 97.9 F 98.5 F Pulse Rate 96 H 93 H Respiratory 18 16 Rate Blood Pressure 104/33 Blood Pressure 101/50 [Left] O2 Sat by Pulse 100 100 Oximetry ED Medical Decision Making - Lab Data Result diagrams: 11/19/17 00:50 - Medical Decision Making The patient was seen and examined by myself. The patient is placed on a surveillance monitor and continuous pulse ox. On initial evaluation, the patient was found to be in no distress. Evaluation orders were placed. The patient is given 2 L normal saline fluid bolus for treatment of dehydration and lightheadedness. Lab results are reassuring including non-concerning levels of RBC, hemoglobin, hematocrit, platelets, wet prep, and negative test. The patient was reevaluated and reported that their symptoms were improved. As the patient has non-concerning levels of RBC, hemoglobin, hematocrit, platelets , with normal vital signs, and there is no evidence of severe bleeding requiring transfusion or other emergent management at this time, the patient is stable for discharge with outpatient follow-up. The patient is given follow-up and return instructions. The patient expressed understanding and agreed with the plan. The patient is discharged in stable condition. Critical care attestation.: If time is entered above; I have spent that time in minutes in the direct care of this critically ill patient, excluding procedure time. ED Disposition Clinical Impression: Orthostatic lightheadedness, Dehydration, mild, Abnormal vaginal bleeding, Menorrhagia with irregular cycle, Iron deficiency anemia due to chronic blood loss Disposition: - TO HOME OR SELFCARE Is pt being admited?: No Does the pt Need Aspirin: No Condition: Stable Instructions: Menorrhagia (ED), Uterine Fibroids (ED), Anemia (ED), Lightheadedness (ED), Near Syncope (ED) Prescriptions: Meclizine [Antivert] 25 mg PO TID PRN #20 tablet PRN Reason: Vertigo medroxyPROGESTERone ACETATE [Provera] 5 mg PO QDAY #5 tablet Referrals: PRIMARY CARE, [Primary Care Provider] - 3-5 Days Time of Disposition: 04:10
[2017-11-19 04:50] LABS: Bilirubin,Urine NEG (Negative); Blood,Urine MOD (Negative); Color,Urine Red (Yellow); Nitrite,Urine NEG (Negative); Urobilinogen,Urine < 2.0 mg/dL (<2.0)
[2017-11-19 05:06] LABS: RBC,Urine > 182.0 /HPF (0.0-6.0)
[2017-11-19 05:07] LABS: WBC,Urine > 182.0 /HPF (0.0-6.0)
== END 2017-11-19 05:00 | disposition home or self-care (01) ==
LOC: ED 23:48
DX: N92.0 Excessive and frequent menstruation with regular cycle (principal); R42 Dizziness and giddiness; E86.0 Dehydration; D50.9 Iron deficiency anemia, unspecified; J45.909 Unspecified asthma, uncomplicated
CPT/HCPCS: 36415; 81001; 84702; 85025; 86850; 86900; 86901; 96360; 99284; J7030

== ENCOUNTER 2017-11-28 19:20 | Observation (INO) | payer MEDICAID ==
[2017-11-28 20:39] LABS: Basophils % (Auto) 0.5 % (0.0-1.8); Eosinophils # (Auto) 0.1 K/mm3 (0.0-0.4); Eosinophils % (Auto) 0.8 % (0.0-4.3); Hematocrit 27.8 % (30.3-42.9); Hemoglobin 8.9 gm/dl (10.1-14.3); Lymphocytes # (Auto) 1.5 K/mm3 (1.2-5.4); Lymphocytes % (Auto) 18.8 % (13.4-35.0); Mean Corpuscular HGB Conc 32 % (30-34); Mean Corpuscular Hemoglobin 28 pg (28-32); Mean Corpuscular Volume 86 fl (79-97); Monocytes # (Auto) 0.7 K/mm3 (0.0-0.8); Monocytes % (Auto) 8.6 % (0.0-7.3); Platelet Count 412 K/mm3 (140-440); Red Blood Count 3.22 M/mm3 (3.65-5.03); Red Cell Distribution Width 17.2 % (13.2-15.2)
[2017-11-28 20:55] LABS: BUN/Creatinine Ratio 10; Blood Urea Nitrogen 7 mg/dL (7-17); Calcium 8.5 mg/dL (8.4-10.2); Hemolysis Index 0
[2017-11-28] MEDS ORDERED: NACL 0.9% 1000 ML 1,000 ML IV ONE (21:04)
--- NOTE | 2017-11-28 21:14 | Emergency Department Report ---
HPI - General Chief Complaint: Arrhythmia/Palpitations Time Seen by Provider: 11/28/17 20:45 - HPI HPI: Room 2 The patient is a 47-year-old female presenting with chief complaint of dizziness. The patient states yesterday she began feeling "shaky" and near syncopal. This evening the symptoms return. The patient states she feels dizzy with movement. Patient denies chest pain but admits to occasional shortness of breath. Patient has a history of menorrhagia and states that her CUSTOMS MANAGER is planning on performing a hysterectomy. The patient stated she had vaginal bleeding from 11/12/2017 through approximately 11/25/2017. The patient says she has gone through approximately 8-10 pads daily and on one day she went through approximately 12 pads. The patient came to this ED approximately 10 days ago after a brief syncopal episode. Patient was evaluated in the ED and discharged on Provera and meclizine. Location: [See above] Duration: [See above] Quality: Dizziness Severity: Moderate Modifying factors: [see above] Context: [see above] Mode of transportation: [not driving] ED Past Medical Hx - Past Medical History Hx Asthma: Yes Additional medical history: 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 Fibroids, anemia, 5 herniated discs - Surgical History Past Surgical History?: No - Family History Family history: no significant - Social History Smoking Status: Never Smoker Substance Use Type: None (denies illicit drug use ) - Medications Home Medications: Home Medications Medication Instructions Recorded Confirmed Last Taken Type Cyclobenzaprine [Flexeril] 10 mg PO BID PRN 07/05/16 02/20/17 02/20/17 History Fluticasone [Flonase] 1 spray NS QDAY 07/05/16 02/20/17 02/20/17 History Pregabalin [Lyrica] 75 mg PO QDAY 07/05/16 02/20/17 02/20/17 History Nitrofurantoin Travis/M-Cryst 100 mg PO Q12HR #10 capsule 02/16/17 02/20/17 Rx [Macrobid CAP] Ferrous Sulfate [Feosol 325 MG tab] 325 mg PO BID #60 tablet 07/25/17 Unknown Rx Diclofenac [Eugenie Contreras] 75 mg PO BID #20 tablet 09/15/17 Unknown Rx Tizanidine HCl [Zanaflex] 2 mg PO BID PRN #20 capsule 09/15/17 Unknown Rx Meclizine [Antivert] 25 mg PO TID PRN #20 tablet 11/19/17 Unknown Rx medroxyPROGESTERone ACETATE 5 mg PO QDAY #5 tablet 11/19/17 Unknown Rx [Provera] ED Review of Systems ROS: Stated complaint: HT PALP.,WEAKNESS Other details as noted in HPI Constitutional: chills Respiratory: shortness of breath Cardiovascular: palpitations. denies: chest pain Musculoskeletal: back pain Physical Exam - Physical Exam Vital Signs: Vital Signs 11/28/17 20:10 Temperature 98.4 F Pulse Rate 118 H Respiratory 20 Rate Blood Pressure 115/77 O2 Sat by Pulse 100 Oximetry Physical Exam: GENERAL: The patient is well-developed well-nourished female lying on stretcher not appearing to be in acute distress. [] HEENT: Normocephalic. Atraumatic. Extraocular motions are intact. Patient has moist mucous membranes. No nystagmus NECK: Supple. Trachea midline CHEST/LUNGS: Clear to auscultation. There is no respiratory distress noted. HEART/CARDIOVASCULAR: Regular. There is tachycardia. There is no gallop rub or murmur. ABDOMEN: Abdomen is soft, nontender. Patient has normal bowel sounds. There is no abdominal distention. SKIN: There is no rash. There is no edema. There is no diaphoresis. NEURO: The patient is awake, alert, and oriented. The patient is cooperative. The patient has no focal neurologic deficits. The patient has normal speech. Cranial nerves II through XII grossly intact, no drift MUSCULOSKELETAL: There is no evidence of acute injury. ED Course Vital Signs 11/28/17 20:10 Temperature 98.4 F Pulse Rate 118 H Respiratory 20 Rate Blood Pressure 115/77 O2 Sat by Pulse 100 Oximetry ED Medical Decision Making - Lab Data Result diagrams: 11/28/17 20:21 11/28/17 20:21 Laboratory Tests 11/28/17 11/28/17 11/28/17 20:21 20:21 20:21 WBC 7.7 RBC 3.22 L Hgb 8.9 L Hct 27.8 L MCV 86 MCH 28 MCHC 32 RDW 17.2 H Plt Count 412 Lymph % (Auto) 18.8 Travis % (Auto) 8.6 H Eos % (Auto) 0.8 Baso % (Auto) 0.5 Lymph # 1.5 Travis # 0.7 Eos # 0.1 Baso # 0.0 Seg Neutrophils % 71.3 H Seg Neutrophils # 5.5 D-Dimer Sodium 140 Potassium 3.8 Chloride 101.6 Carbon Dioxide 23 Anion Gap 19 BUN 7 Creatinine 0.7 Estimated GFR > 60 BUN/Creatinine Ratio 10 Glucose 96 Calcium 8.5 Total Creatine Kinase CK-MB (CK-2) CK-MB (CK-2) Rel Index Troponin T NT-Pro-B Natriuret Pep TSH Free T4 Urine Color Urine Turbidity Urine pH Ur Specific [place] Urine Protein Urine Glucose (UA) Urine Ketones Urine Blood Urine Nitrite Urine Bilirubin Urine Urobilinogen Ur Leukocyte Esterase Urine WBC (Auto) Urine RBC (Auto) U Epithel Cells (Auto) Blood Type A POSITIVE Antibody Screen Negative 11/28/17 11/28/17 11/28/17 20:28 21:31 21:49 WBC RBC Hgb Hct MCV MCH MCHC RDW Plt Count Lymph % (Auto) Travis % (Auto) Eos % (Auto) Baso % (Auto) Lymph # Travis # Eos # Baso # Seg Neutrophils % Seg Neutrophils # D-Dimer < 135.00 Sodium Potassium Chloride Carbon Dioxide Anion Gap BUN Creatinine Estimated GFR BUN/Creatinine Ratio Glucose Calcium Total Creatine Kinase 79 CK-MB (CK-2) 1.6 CK-MB (CK-2) Rel Index 2.0 Troponin T < 0.010 NT-Pro-B Natriuret Pep 49.92 TSH Free T4 Urine Color Straw Urine Turbidity Clear Urine pH 7.0 Ur Specific [place] 1.009 Urine Protein <15 mg/dl Urine Glucose (UA) Neg Urine Ketones Neg Urine Blood Neg Urine Nitrite Neg Urine Bilirubin Neg Urine Urobilinogen < 2.0 Ur Leukocyte Esterase Neg Urine WBC (Auto) 1.0 Urine RBC (Auto) < 1.0 U Epithel Cells (Auto) < 1.0 Blood Type Antibody Screen 11/28/17 21:49 WBC RBC Hgb Hct MCV MCH MCHC RDW Plt Count Lymph % (Auto) Travis % (Auto) Eos % (Auto) Baso % (Auto) Lymph # Travis # Eos # Baso # Seg Neutrophils % Seg Neutrophils # D-Dimer Sodium Potassium Chloride Carbon Dioxide Anion Gap BUN Creatinine Estimated GFR BUN/Creatinine Ratio Glucose Calcium Total Creatine Kinase CK-MB (CK-2) CK-MB (CK-2) Rel Index Troponin T NT-Pro-B Natriuret Pep TSH 1.440 Free T4 0.93 Urine Color Urine Turbidity Urine pH Ur Specific [place] Urine Protein Urine Glucose (UA) Urine Ketones Urine Blood Urine Nitrite Urine Bilirubin Urine Urobilinogen Ur Leukocyte Esterase Urine WBC (Auto) Urine RBC (Auto) U Epithel Cells (Auto) Blood Type Antibody Screen - EKG Data -: EKG Interpreted by Me EKG shows normal: sinus rhythm Rate: normal - EKG Data When compared to previous EKG there are: no significant change Interpretation: nonspecific ST-T wave agnes (T wave inversion lead 3) - Radiology Data Radiology results: report reviewed (CT head), image reviewed (CT head) FINAL REPORT PROCEDURE: CT HEAD/BRAIN WO CON TECHNIQUE: Computerized tomography of the head was performed without contrast material. HISTORY: dizziness COMPARISON: 02/20/2017 FINDINGS: Skull and scalp: Normal. Paranasal sinuses: Normal. Ventricles and subarachnoid spaces: Normal. Cerebrum: No evidence of hemorrhage, acute infarction or mass . Cerebellum and brainstem: No evidence of hemorrhage, acute infarction or mass. Vasculature: Normal. Comments: None. IMPRESSION: Normal Examination Transcribed By: [facility] Dictated By: SHARON ISLAS Electronically Authenticated By: SHARON ISLAS Signed Date/Time: 11/28/171753 DD/ 53 TD/TT: 11/28/171753 - Medical Decision Making Patient remains symptomatic upon standing. Heart rate increases to 107 with standing. Given recent syncopal episode and the fact that the patient is still symptomatic with a definitive diagnosis I discussed with the patient my recommendations for being admitted to the hospital for further evaluation - Differential Diagnosis vertigo, ICH, PE, pyelonephritis, hyperthyroidism Critical care attestation.: If time is entered above; I have spent that time in minutes in the direct care of this critically ill patient, excluding procedure time. ED Disposition Clinical Impression: Orthostatic lightheadedness Disposition: OP ADMIT IP TO THIS HOSP Is pt being admited?: Yes Does the pt Need Aspirin: Yes Condition: Fair Referrals: PRIMARY CARE, [Primary Care Provider] - 3-5 Days Time of Disposition: 23:08 (hospitalist paged (Dr Sauceda))
[2017-11-28 21:15] LABS: Creatine Kinase MB 1.6 ng/mL (0.0-4.0)
--- NOTE | 2017-11-28 21:57 | Cat Scan Report ---
FINAL REPORT PROCEDURE: CT HEAD/BRAIN WO CON TECHNIQUE: Computerized tomography of the head was performed without contrast material. HISTORY: dizziness COMPARISON: 02/20/2017 FINDINGS: Skull and scalp: Normal. Paranasal sinuses: Normal. Ventricles and subarachnoid spaces: Normal. Cerebrum: No evidence of hemorrhage, acute infarction or mass . Cerebellum and brainstem: No evidence of hemorrhage, acute infarction or mass. Vasculature: Normal. Comments: None. IMPRESSION: Normal Examination
[2017-11-28 21:58] LABS: Bilirubin,Urine NEG (Negative); Blood,Urine NEG (Negative); Color,Urine Straw (Yellow); Nitrite,Urine NEG (Negative); Protein,Urine <15 mg/dL mg/dL (Negative); Urobilinogen,Urine < 2.0 mg/dL (<2.0)
[2017-11-28 22:12] LABS: RBC,Urine < 1.0 /HPF (0.0-6.0)
[2017-11-28 22:48] LABS: Free T4 (Free Thyroxine) 0.93 ng/dL (0.76-1.46)
[2017-11-28] MEDS ORDERED: ASPIRIN PO ONE (23:10)
[2017-11-28] MEDS ORDERED: ANTIVERT PO ONE (23:10)
[2017-11-28] MEDS ORDERED: PROVENTIL IH PRN (23:29)
[2017-11-28] MEDS ORDERED: NARCAN 0.4 MG/1 ML IV PRN (23:29)
[2017-11-28] MEDS ORDERED: DULCOLAX PR PRN (23:29)
[2017-11-28] MEDS ORDERED: ALUM-MAG HYDROX-SIMETH 200-200-20MG/5ML PO PRN (23:29)
[2017-11-28] MEDS ORDERED: ZOFRAN IV PRN (23:29)
[2017-11-28] MEDS ORDERED: AMBIEN PO PRN (23:29)
[2017-11-28] MEDS ORDERED: TYLENOL PO PRN (23:29)
[2017-11-28] MEDS ORDERED: MILK OF MAGNESIA PO PRN (23:29)
--- NOTE | 2017-11-28 23:29 | History and Physical Report ---
History of Present Illness Date of examination: 11/28/17 Chief complaint: Palpitations and dizziness and generalized weakness History of present illness: The patient is a 47-year-old female presenting with chief complaint of dizziness. The patient states yesterday she began feeling "shaky" and near syncopal. This evening the symptoms return. The patient states she feels dizzy with movement. Patient denies chest pain but admits to occasional shortness of breath. Patient has a history of menorrhagia and states that her NEUROPSYCHIATRIST is planning on performing a hysterectomy. The patient stated she had vaginal bleeding from 11/12/2017 through approximately 11/25/2017. The patient says she has gone through approximately 8-10 pads daily and on one day she went through approximately 12 pads. The patient came to this ED approximately 10 days ago after a brief syncopal episode. Patient was evaluated in the ED and discharged on Provera and meclizine. She has a past medical history of asthma, herniated disc chronic back pain, and chronic headaches. Her Symptoms worse with standing. Somewhat alleviated at rest. No pain reported. Patient has a history of anemia due to menorrhagia and recently had a heavy cycle. She states her body feels heavy. She denies chest pain, short of breath, nausea, vomiting, diarrhea, or decreased by mouth intake. PMD Dr. 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 Fibroids, anemia, 5 herniated discs - Surgical History Past Surgical History?: No - Family History Family history: no significant - Social History Smoking Status: Never Smoker Substance Use Type: None (denies illicit drug use ) Medications and Allergies Allergies Allergy/AdvReac Type Severity Reaction Status Date / Time No Known Allergies Allergy Unverified 03/30/15 13:51 Home Medications Medication Instructions Recorded Confirmed Last Taken Type Cyclobenzaprine [Flexeril] 10 mg PO BID PRN 07/05/16 02/20/17 02/20/17 History Fluticasone [Flonase] 1 spray NS QDAY 07/05/16 02/20/17 02/20/17 History Pregabalin [Lyrica] 75 mg PO QDAY 07/05/16 02/20/17 02/20/17 History Nitrofurantoin Brantley/M-Cryst 100 mg PO Q12HR #10 capsule 02/16/17 02/20/17 Rx [Macrobid CAP] Ferrous Sulfate [Feosol 325 MG tab] 325 mg PO BID #60 tablet 07/25/[address] [Voltaren Dr] 75 mg PO BID #20 tablet 09/15/17 Unknown Rx Tizanidine HCl [Zanaflex] 2 mg PO BID PRN #20 capsule 09/15/17 Unknown Rx Meclizine [Antivert] 25 mg PO TID PRN #20 tablet 11/19/17 Unknown Rx medroxyPROGESTERone ACETATE 5 mg PO QDAY #5 tablet 11/19/17 Unknown Rx [Provera] Review of Systems All systems: negative (all 14 systems reviewed and found to be negative except as mentioned in HPI) Exam - Physical Exam Narrative exam: General: the patient is awake alert oriented to time place and person. no evidence of acute distress HEENT: Head is atraumatic normocephalic,. Pupils equal round reactive to light and accommodation, extraocular movements intact. Oral mucosa moist. Oropharynx clear. No pharyngeal erythema or tonsillar exudate. Neck: Supple no JVD no thyromegaly or lymphadenopathy. Heart: Regular rate and rhythm no murmurs or gallops. S1 and S2 normal. PMI not displaced. Lungs: Clear to auscultation bilaterally. No rales rhonchi wheezing. Nonlabored breathing. Normal chest wall expansion. Abdomen: Soft, nondistended, and nontender. Normoactive bowel sounds. No hepatosplenomegaly. No abdominal masses or bruit appreciated. Extremities: No cyanosis/clubbing/ edema. Musculoskeletal: Normal range of movement all joints. No obvious deformity or tenderness to palpation. Normal muscle tone. Back: Normal alignment. No step-off. No midline or paraspinal tenderness. No CVA tenderness. Neurological: Grossly intact and nonfocal. No cerebellar signs. Cranial nerves II-12 grossly intact. Strength 5 out of 5 all 4 extremities. Sensations grossly intact. Skin: Warm and dry no rashes or bruises. Psychiatric: Normal mood. Appropriate affect and good insight and judgment. Vascular system: No lymphadenopathy. Distal pulses 2+ bilaterally. - Constitutional Vitals: Temp Pulse Resp BP Pulse Ox 98.4 F 100 H 16 104/67 98 11/28/17 20:10 11/28/17 22:43 11/28/17 22:43 11/28/17 22:43 11/28/17 22:43 Results - Labs CBC & Chem 7: 11/28/17 20:21 11/28/17 20:21 Labs: Laboratory Last Values WBC 7.7 K/mm3 (4.5-11.0) 11/28/17 20:21 RBC 3.22 M/mm3 (3.65-5.03) L 11/28/17 20:21 Hgb 8.9 gm/dl (10.1-14.3) L 11/28/17 20:21 Hct 27.8 % (30.3-42.9) L 11/28/17 20:21 MCV 86 fl (79-97) 11/28/17 20:21 MCH 28 pg (28-32) 11/28/17 20:21 MCHC 32 % (30-34) 11/28/17 20:21 RDW 17.2 % (13.2-15.2) H 11/28/17 20:21 Plt Count 412 K/mm3 (140-440) 11/28/17 20:21 Lymph % (Auto) 18.8 % (13.4-35.0) 11/28/17 20:21 Brantley % (Auto) 8.6 % (0.0-7.3) H 11/28/17 20:21 Eos % (Auto) 0.8 % (0.0-4.3) 11/28/17 20:21 Baso % (Auto) 0.5 % (0.0-1.8) 11/28/17 20:21 Lymph # 1.5 K/mm3 (1.2-5.4) 11/28/17 20:21 Brantley # 0.7 K/mm3 (0.0-0.8) 11/28/17 20:21 Eos # 0.1 K/mm3 (0.0-0.4) 11/28/17 20:21 Baso # 0.0 K/mm3 (0.0-0.1) 11/28/17 20:21 Seg Neutrophils % 71.3 % (40.0-70.0) H 11/28/17 20:21 Seg Neutrophils # 5.5 K/mm3 (1.8-7.7) 11/28/17 20:21 D-Dimer < 135.00 ng/mlDDU (0-234) 11/28/17 21:49 Sodium 140 mmol/L (137-145) 11/28/17 20:21 Potassium 3.8 mmol/L (3.6-5.0) 11/28/17 20:21 Chloride 101.6 mmol/L (98-107) 11/28/17 20:21 Carbon Dioxide 23 mmol/L (22-30) 11/28/17 20:21 Anion Gap 19 mmol/L 11/28/17 20:21 BUN 7 mg/dL (7-17) 11/28/17 20:21 Creatinine 0.7 mg/dL (0.7-1.2) 11/28/17 20:21 Estimated GFR > 60 ml/min 11/28/17 20:21 BUN/Creatinine Ratio 10 % 11/28/17 20:21 Glucose 96 mg/dL (65-100) 11/28/17 20:21 Calcium 8.5 mg/dL (8.4-10.2) 11/28/17 20:21 Total Creatine Kinase 79 units/L (30-135) 11/28/17 20:28 CK-MB (CK-2) 1.6 ng/mL (0.0-4.0) 11/28/17 20: CK-MB (CK-2) Rel Index 2.0 (0-4) 11/28/17 20:28 Troponin T < 0.010 ng/mL (0.00-0.029) 11/28/17 20:28 NT-Pro-B Natriuret Pep 49.92 pg/mL (0-450) 11/28/17 20:28 TSH 1.440 mlU/mL (0.270-4.200) 11/28/17 21:49 Free T4 0.93 ng/dL (0.76-1.46) 11/28/17 21:49 Urine Color Straw (Yellow) 11/28/17 21:31 Urine Turbidity Clear (Clear) 11/28/17 21:31 Urine pH 7.0 (5.0-7.0) 11/28/17 21:31 Ur Specific [place] 1.009 (1.003-1.030) 11/28/17 21:31 Urine Protein <15 mg/dl mg/dL (Negative) 11/28/17 21:31 Urine Glucose (UA) Neg mg/dL (Negative) 11/28/17 21: Urine Ketones Neg mg/dL (Negative) 11/28/17 21: Urine Blood Neg (Negative) 11/28/17 21:31 Urine Nitrite Neg (Negative) 11/28/17 21: Urine Bilirubin Neg (Negative) 11/28/17 21: Urine Urobilinogen < 2.0 mg/dL (<2.0) 11/28/17 21:31 Ur Leukocyte Esterase Neg (Negative) 11/28/17 21: Urine WBC (Auto) 1.0 /HPF (0.0-6.0) 11/28/17 21: Urine RBC (Auto) < 1.0 /HPF (0.0-6.0) 11/28/17 21: U Epithel Cells (Auto) < 1.0 /HPF (0-13.0) 11/28/17 21: Blood Type A POSITIVE 11/28/17 20: Antibody Screen Negative 11/28/17 20:21 - Imaging and Cardiology Imaging and Cardiology: EKG showed normal sinus rhythm nonspecific ST-T wave changes but otherwise read as normal no evidence of ischemia CT head without contrast showing no acute process Assessment and Plan Assessment and plan: Assessment and plan - * Symptomatic anemia * Dizziness and sinus tach due to symptomatic anemia * Generalized weakness and palpitations likely due to symptomatic anemia. Thyroid function tests normal * Menometrorrhagia - follow-up with [facility] P[facility]ER as an outpatient Plan - Admitted to medical floor with telemetry for 24-hour observation Check anemia studies as ordered including iron panel and ferritin treated appropriately as indicated Patient needs to follow up with NEUROPSYCHIATRIST as an outpatient for definitive management Monitor H&H closely and transfuse 1 unit PRBC because of her symptomatic anemia. If her symptoms persist may consider doing an MRI brain for further evaluation Monitor CBC and electrolytes Replace electrolytes when necessary as per protocol DVT from [place] with SCDs only in the wall for severe menstrual bleeding GI prophylaxis as ordered Monitor and follow the patient closely VTE prophylaxis?: Mechanical Reason for no VTE Prophylaxis: Bleeding Plan of care discussed with patient/family: Yes
[2017-11-28] MEDS ORDERED: NACL 0.9% 500 ML 500 ML IV ONE (23:33)
[2017-11-28] MEDS ORDERED: ANTIVERT PO PRN (23:35)
[2017-11-28] MEDS ORDERED: NACL 0.9% 1000 ML 1,000 ML IV SCH (23:45)
[2017-11-29] MEDS ORDERED: NACL 0.9% 500 ML 500 ML ONE (01:34)
[2017-11-29 01:59] LABS: Chol/HDL Ratio 2.5 %
[2017-11-29 02:13] LABS: Iron 26 ug/dL (37-170); Total Iron Binding Capacity 300 mcg/dL (250-450)
[2017-11-29 07:36] LABS: Basophils % (Auto) 0.4 % (0.0-1.8); Eosinophils # (Auto) 0.1 K/mm3 (0.0-0.4); Eosinophils % (Auto) 1.3 % (0.0-4.3); Hematocrit 28.2 % (30.3-42.9); Hemoglobin 8.9 gm/dl (10.1-14.3); Lymphocytes # (Auto) 1.6 K/mm3 (1.2-5.4); Lymphocytes % (Auto) 26.5 % (13.4-35.0); Mean Corpuscular HGB Conc 32 % (30-34); Mean Corpuscular Hemoglobin 27 pg (28-32); Mean Corpuscular Volume 87 fl (79-97); Monocytes # (Auto) 0.6 K/mm3 (0.0-0.8); Monocytes % (Auto) 10.3 % (0.0-7.3); Platelet Count 355 K/mm3 (140-440); Red Blood Count 3.25 M/mm3 (3.65-5.03); Red Cell Distribution Width 16.7 % (13.2-15.2)
[2017-11-29 07:59] LABS: Creatine Kinase MB 1.3 ng/mL (0.0-4.0)
[2017-11-29 08:01] LABS: Alanine Aminotransferase 9 units/L (7-56); Albumin 3.4 g/dL (3.9-5); BUN/Creatinine Ratio 10; Blood Urea Nitrogen 6 mg/dL (7-17); Calcium 8.2 mg/dL (8.4-10.2); Hemolysis Index 0
[2017-11-29] MEDS ORDERED: FEOSOL PO SCH (10:00)
[2017-11-29] MEDS ORDERED: PEPCID PO SCH (10:00)
[2017-11-29] MEDS ORDERED: LYRICA PO SCH (10:00)
[2017-11-29] MEDS ORDERED: FLONASE NS SCH (10:00)
[2017-11-29] MEDS ORDERED: PROVERA PO SCH (10:00)
[2017-11-29] MEDS ORDERED: COLACE PO SCH (10:00)
[2017-11-29 12:26] LABS: Creatine Kinase MB 1.3 ng/mL (0.0-4.0)
--- NOTE | 2017-11-29 13:28 | Progress Note ---
Assessment and Plan Assessment and plan: Patient is a 47-year-old woman w/ a h/o asthma and anemia who presents with complaints of generalized weakness, dizziness and excessive vaginal bleeding. She had a near syncopal event documented in the emergency department. CT head was reported as normal. Hemoglobin was 8.9. She was transfused 1 unit of prbc which resolved her symptoms of lightheadedness, dizziness and heart racing -Acute blood loss anemia most likely due to menorrhagia status post 1 unit of packed red blood cells: She is to keep her outpatient DIRECTOR OF OPERATIONS visit, she scheduled for hysterectomy. -Near-syncope related to above -Elevated blood pressure without a diagnosis of hypertension: stop nss ivf. mri pending, if negative will discharge History Interval history: Patient was seen and examined. Follow-up on current diagnosis dizziness which is resolved after blood transfusion.. Overnight uneventful. Patient denies any chest pain, shortness breath, nausea/vomiting or severe headaches. Imaging , nursing note, chart, labs and old chart reviewed. Discussed with patient. Hospitalist Physical - Physical exam Narrative exam: GEN: WDWN, NAD, AWAKE, ALERT, ORIENTATED 3 HEENT: NCAT, EOMI, PERRL, OP Clear NECK: supple, no adenopathy, no thyromegaly, no JVD CVS/HEART: RRR, NORMAL S1S2, pulses present bilaterally CHEST/LUNGS: CTA B, Symmetrical chest expansion, good air entry bilaterally GI/Abdomen: soft, NTND, good bowel sounds, no guarding or rebound /Bladder: no suprapubic tenderness, no CVA or paraspinal tenderness EXT/Skin: no c/c/e, no obvious rash MSK: FROM x 4 Neuro: CN 2-12 grossly intact, no new focal deficits Psych: calm - Constitutional Vitals: Temp Pulse Resp BP Pulse Ox 97.8 F 77 20 107/55 99 11/29/17 09:32 11/29/17 09:32 11/29/17 09:32 11/29/17 09:32 11/29/17 09:32 Results - Labs CBC & Chem 7: 11/29/17 07:06 11/29/17 07:06 Labs: Laboratory Last Values WBC 6.2 K/mm3 (4.5-11.0) 11/29/17 07:06 RBC 3.25 M/mm3 (3.65-5.03) L 11/29/17 07:06 Hgb 8.9 gm/dl (10.1-14.3) L 11/29/17 07:06 Hct 28.2 % (30.3-42.9) L 11/29/17 07:06 MCV 87 fl (79-97) 11/29/17 07:06 MCH 27 pg (28-32) L 11/29/17 07:06 MCHC 32 % (30-34) 11/29/17 07:06 RDW 16.7 % (13.2-15.2) H 11/29/17 07:06 Plt Count 355 K/mm3 (140-440) 11/29/17 07:06 Lymph % (Auto) 26.5 % (13.4-35.0) 11/29/17 07:06 Bradley % (Auto) 10.3 % (0.0-7.3) H 11/29/17 07:06 Eos % (Auto) 1.3 % (0.0-4.3) 11/29/17 07:06 Baso % (Auto) 0.4 % (0.0-1.8) 11/29/17 07:06 Lymph # 1.6 K/mm3 (1.2-5.4) 11/29/17 07:06 Bradley # 0.6 K/mm3 (0.0-0.8) 11/29/17 07:06 Eos # 0.1 K/mm3 (0.0-0.4) 11/29/17 07:06 Baso # 0.0 K/mm3 (0.0-0.1) 11/29/17 07:06 Seg Neutrophils % 61.5 % (40.0-70.0) 11/29/17 07:06 Seg Neutrophils # 3.8 K/mm3 (1.8-7.7) 11/29/17 07:06 D-Dimer < 135.00 ng/mlDDU (0-234) 11/28/17 21:49 Sodium 143 mmol/L (137-145) 11/29/17 07:06 Potassium 3.9 mmol/L (3.6-5.0) 11/29/17 07:06 Chloride 105.6 mmol/L (98-107) 11/29/17 07:06 Carbon Dioxide 23 mmol/L (22-30) 11/29/17 07:06 Anion Gap 18 mmol/L 11/29/17 07:06 BUN 6 mg/dL (7-17) L 11/29/17 07:06 Creatinine 0.6 mg/dL (0.7-1.2) L 11/29/17 07:06 Estimated GFR > 60 ml/min 11/29/17 07:06 BUN/Creatinine Ratio 10 % 11/29/17 07:06 Glucose 106 mg/dL (65-100) H 11/29/17 07:06 Hemoglobin A1c 4.2 % (4-6) 11/28/17 Unknown Calcium 8.2 mg/dL (8.4-10.2) L 11/29/17 07:06 Iron 26 ug/dL (37-170) L 11/28/17 Unknown TIBC 300 mcg/dL (250-450) 11/28/17 Unknown Ferritin 9.8 ng/mL (13.0-400.0) L 11/28/17 Unknown Total Bilirubin 0.20 mg/dL (0.1-1.2) 11/29/17 07:06 AST 11 units/L (5-40) 11/29/17 07:06 ALT 9 units/L (7-56) 11/29/17 07:06 Alkaline Phosphatase 53 units/L (35-129) 11/29/17 07:06 Total Creatine Kinase 63 units/L (30-135) 11/29/17 11:42 CK-MB (CK-2) 1.3 ng/mL (0.0-4.0) 11/29/17 11:42 CK-MB (CK-2) Rel Index 2.0 (0-4) 11/29/17 11:42 Troponin T < 0.010 ng/mL (0.00-0.029) 11/29/17 11:42 NT-Pro-B Natriuret Pep 49.92 pg/mL (0-450) 11/28/17 20:28 Total Protein 6.0 g/dL (6.3-8.2) L 11/29/17 07:06 Albumin 3.4 g/dL (3.9-5) L 11/29/17 07:06 Albumin/Globulin Ratio 1.3 % 11/29/17 07:06 Triglycerides 94 mg/dL (2-149) 11/28/17 Unknown Cholesterol 130 mg/dL (50-199) 11/28/17 Unknown LDL Cholesterol Direct 60 mg/dL (50-130) 11/28/17 Unknown HDL Cholesterol 52 mg/dL (40-59) 11/28/17 Unknown Cholesterol/HDL Ratio 2.50 % 11/28/17 Unknown Vitamin B12 408.5 pg/mL (211-911) 11/28/17 Unknown Folate 16.55 ng/mL (7.3-26.0) 11/28/17 Unknown TSH 1.440 mlU/mL (0.270-4.200) 11/28/17 21:49 Free T4 0.93 ng/dL (0.76-1.46) 11/28/17 21:49 Urine Color Straw (Yellow) 11/28/17 21:31 Urine Turbidity Clear (Clear) 11/28/17 21:31 Urine pH 7.0 (5.0-7.0) 11/28/17 21:31 Ur Specific [place] 1.009 (1.003-1.030) 11/28/17 21:31 Urine Protein <15 mg/dl mg/dL (Negative) 11/28/17 21:31 Urine Glucose (UA) Neg mg/dL (Negative) 11/28/17 21:31 Urine Ketones Neg mg/dL (Negative) 11/28/17 21:31 Urine Blood Neg (Negative) 11/28/17 21:31 Urine Nitrite Neg (Negative) 11/28/17 21:31 Urine Bilirubin Neg (Negative) 11/28/17 21:31 Urine Urobilinogen < 2.0 mg/dL (<2.0) 11/28/17 21:31 Ur Leukocyte Esterase Neg (Negative) 11/28/17 21:31 Urine WBC (Auto) 1.0 /HPF (0.0-6.0) 11/28/17 21:31 Urine RBC (Auto) < 1.0 /HPF (0.0-6.0) 11/28/17 21:31 U Epithel Cells (Auto) < 1.0 /HPF (0-13.0) 11/28/17 21:31 Blood Type A POSITIVE 11/28/17 20:21 Antibody Screen Negative 11/28/17 20:21 Crossmatch See Detail 11/28/17 20:21
--- NOTE | 2017-11-29 13:46 | Magnetic Resonance Report ---
MRI OF THE BRAIN WITHOUT CONTRAST: HISTORY: Acute altered mental status with dysphagia, CVA PROCEDURE: Multiplanar, multisequence MR imaging of the brain without IV contrast was performed. FINDINGS: The brain parenchyma signal intensity and its lawton white interface are within normal limits on all sequences. No evidence for acute ischemia, hemorrhage or mass. No chronic infarct or extra-axial fluid collection. The midline structures are central. The basal cisterns are patent. Normal ventricular size. The orbital cavities and sella turcica demonstrate no abnormality. The visualized paranasal sinuses and mastoid air cells are well aerated. IMPRESSION: Unremarkable non-enhanced MRI of the brain.
--- NOTE | 2017-11-29 13:50 | Discharge Summary ---
Providers - Providers Date of Admission: 11/28/17 23:29 Date of discharge: 11/29/17 Attending physician: NESTOR HENSLEY Hospitalization Condition: Stable Hospital course: Patient is a 47-year-old woman w/ a h/o asthma and anemia who presents with complaints of generalized weakness, dizziness and excessive vaginal bleeding. She had a near syncopal event documented in the emergency department. CT head was reported as normal. Hemoglobin was 8.9. She was transfused 1 unit of prbc which resolved her symptoms of lightheadedness, dizziness and heart racing -Acute blood loss anemia most likely due to menorrhagia status post 1 unit of packed red blood cells: She is to keep her outpatient ESTHETICIAN/SPA COORDINATOR visit, she scheduled for hysterectomy. -Near-syncope related to above -Elevated blood pressure without a diagnosis of hypertension: stop nss ivf. mri pending, if negative will discharge Disposition: DC-01 TO HOME OR SELFCARE Time spent for discharge: 36 minutes Core Measure Documentation - Palliative Care Palliative Care/ Comfort Measures: Not Applicable - Core Measures Any of the following diagnoses?: none - VTE Discharge Requirements Deep Vein Thrombosis/Pulmonary Embolism Present on Admission: No Has pt received <5 days of overlap therapy or INR<2.0: No Anticoagulant overlap therapy prescribed at discharge: No Contraindication No Overlap Therapy order at DC: Not Indicated Exam - Physical Exam Narrative exam: GEN: WDWN, NAD, AWAKE, ALERT, ORIENTATED 3 HEENT: NCAT, EOMI, PERRL, OP Clear NECK: supple, no adenopathy, no thyromegaly, no JVD CVS/HEART: RRR, NORMAL S1S2, pulses present bilaterally CHEST/LUNGS: CTA B, Symmetrical chest expansion, good air entry bilaterally GI/Abdomen: soft, NTND, good bowel sounds, no guarding or rebound /Bladder: no suprapubic tenderness, no CVA or paraspinal tenderness EXT/Skin: no c/c/e, no obvious rash MSK: FROM x 4 Neuro: CN 2-12 grossly intact, no new focal deficits Psych: calm - Constitutional Vitals: Temp Pulse Resp BP Pulse Ox 97.8 F 77 20 107/55 99 11/29/17 09:32 11/29/17 09:32 11/29/17 09:32 11/29/17 09:32 11/29/17 09:32 Plan Activity: other (no strenous activity until cleared by pcp) Diet: regular Special Instructions: record daily BP diary Additional Instructions: Please follow with your ESTHETICIAN/SPA COORDINATOR Follow up with: PRIMARY CAREMD [Referring] - 3-5 Days
[2017-11-29 17:24] VITALS: BP 104/64
== END 2017-11-29 17:40 | disposition home or self-care (01) ==
LOC: ED 19:20 → 3A 23:29
PROVIDERS: ADMIT Internal Medicine Geriatric Medicine; ATTEND Internal Medicine
DX: D64.9 Anemia, unspecified (principal); N92.0 Excessive and frequent menstruation with regular cycle; R53.1 Weakness; J45.909 Unspecified asthma, uncomplicated
CPT/HCPCS: 36415; 70450; 70551; 80048; 80053; 80061; 81001; 82306; 82550; 82553; 82607; 82728; 82747; 83036; 83550; 83880; 84439; 84443; 84484; 85025; 85379; 86850; 86900; 86901; 86920; 93005; 93010; 93880; 96360; 96361; 99285; G0378; J7030; J7040; P9016

== ENCOUNTER 2017-12-12 20:09 | Emergency (ER) | payer MEDICAID ==
[2017-12-12 21:24] LABS: Basophils % (Auto) 0.6 % (0.0-1.8); Eosinophils # (Auto) 0.1 K/mm3 (0.0-0.4); Eosinophils % (Auto) 1.1 % (0.0-4.3); Hematocrit 30.3 % (30.3-42.9); Hemoglobin 9.8 gm/dl (10.1-14.3); Lymphocytes # (Auto) 1.1 K/mm3 (1.2-5.4); Lymphocytes % (Auto) 17.4 % (13.4-35.0); Mean Corpuscular HGB Conc 32 % (30-34); Mean Corpuscular Hemoglobin 28 pg (28-32); Mean Corpuscular Volume 86 fl (79-97); Monocytes # (Auto) 0.5 K/mm3 (0.0-0.8); Monocytes % (Auto) 7.8 % (0.0-7.3); Platelet Count 280 K/mm3 (140-440); Red Blood Count 3.53 M/mm3 (3.65-5.03); Red Cell Distribution Width 15.7 % (13.2-15.2)
[2017-12-13] MEDS ORDERED: NACL 0.9% 1000 ML 1,000 ML IV ONE (03:31)
[2017-12-13 04:43] LABS: Bilirubin,Urine NEG (Negative); Blood,Urine LG (Negative); Color,Urine Yellow (Yellow); Mucus,Urine 2+ /HPF; Urobilinogen,Urine < 2.0 mg/dL (<2.0)
[2017-12-13 04:48] LABS: RBC,Urine > 182.0 /HPF (0.0-6.0); WBC,Urine > 182.0 /HPF (0.0-6.0)
[2017-12-13 05:08] VITALS: BP 95/46
--- NOTE | 2017-12-13 05:16 | Emergency Department Report ---
HPI - General Chief Complaint: Vaginal Bleeding Time Seen by Provider: 12/13/17 02:46 - HPI HPI: The patient's 47-year-old female with a history of fibroids and anemia secondary to chronic vaginal bleeding, whom presents for evaluation of lightheadedness and vaginal bleeding recurrence. The patient reports constant and severe lightheadedness since 9 PM earlier tonight, 5 hours prior to my eval , exacerbated with ambulation or standing, improved with supine positioning. She has experienced on and off heavy vaginal bleeding for weeks. She denies headache, neck pain, chest pain, dyspnea, back pain, flank pain, pain in the extremities, vomiting, diarrhea, paresthesia, seizure-like activity, or other focal neurological deficit. 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 Fibroids, anemia, 5 herniated discs - Surgical History Past Surgical History?: No - Social History Smoking Status: Never Smoker Substance Use Type: None - Medications Home Medications: Home Medications Medication Instructions Recorded Confirmed Last Taken Type Cyclobenzaprine [Flexeril 10 MG 10 mg PO BID PRN 07/05/16 02/20/17 02/20/17 History TAB] Fluticasone [Flonase] 1 spray NS QDAY 07/05/16 02/20/17 02/20/17 History Pregabalin [Lyrica] 75 mg PO QDAY 07/05/16 02/20/17 02/20/17 History Nitrofurantoin [place]/M-Cryst 100 mg PO Q12HR #10 capsule 02/16/17 02/20/17 Rx [Macrobid CAP] Ferrous Sulfate [Feosol 325 MG tab] 325 mg PO BID #60 tablet 07/25/[address] [Voltaren Dr] 75 mg PO BID #20 tablet 09/15/17 Unknown Rx Tizanidine HCl [Zanaflex] 2 mg PO BID PRN #20 capsule 09/15/17 Unknown Rx Meclizine [Antivert] 25 mg PO TID PRN #20 tablet 11/19/17 Unknown Rx medroxyPROGESTERone ACETATE 5 mg PO QDAY #5 tablet 11/19/17 Unknown Rx [Provera] ED Review of Systems ROS: Stated complaint: BLEEDING Other details as noted in HPI Constitutional: reports lightheadedness denies: fever ENT: denies: throat or neck pain Respiratory: denies: cough, shortness of breath Cardiovascular: denies: chest pain Endocrine: denies unexplained weight loss or gain Gastrointestinal: denies: abdominal pain, nausea Genitourinary: reports vaginal bleeding denies: dysuria Musculoskeletal: denies: leg swelling Skin: denies: rash Neurological: denies: headache Hematological/Lymphatic: denies: easy bleeding or easy bruising Psych: denies sadness or hopelessness Physical Exam - Physical Exam Vital Signs: Vital Signs 12/12/17 12/13/17 12/13/17 20:31 02:56 03:00 Temperature 98.2 F Pulse Rate 104 H 81 74 Respiratory 19 13 15 Rate Blood Pressure 131/78 87/33 O2 Sat by Pulse 100 99 100 Oximetry 12/13/17 12/13/17 12/13/17 03:28 03:30 03:55 Temperature Pulse Rate Respiratory Rate Blood Pressure 95/49 98/40 83/44 O2 Sat by Pulse 100 Oximetry 12/13/17 12/13/17 12/13/17 04:00 04:15 04:30 Temperature Pulse Rate Respiratory Rate Blood Pressure 95/44 95/44 108/53 O2 Sat by Pulse 100 100 100 Oximetry 12/13/17 12/13/17 12/13/17 04:45 05:00 05:08 Temperature Pulse Rate 99 H Respiratory Rate Blood Pressure 82/41 95/46 O2 Sat by Pulse 100 100 Oximetry Physical Exam: General: well-nourished, well-developed, no acute distress Head: Normocephalic, atraumatic Eyes: normal sclera ENT: Mucous membranes are pale and dry Neck: No neck stiffness, no cervical adenopathy Respiratory: Breath sounds equal bilaterally, no wheezing, rales, or rhonchi Cardio: S1 and S2 present, no murmurs, rubs, gallops, capillary refill is delayed Abdomen: Normoactive bowel sounds, soft abdomen, no rigidity, no guarding or rebound tenderness Chest WALL/Back: No tenderness to palpation of the chest wall, no CVA tenderness with percussion Musc: No pitting edema Skin: No rash Neuro: no facial drooping, normal speech Psych: Normal affect ED Course Vital Signs 0312/13/17 12/13/17 20:31 02:56 03:00 Temperature 98.2 F Pulse Rate 104 H 81 74 Respiratory 19 13 15 Rate Blood Pressure 131/78 87/33 O2 Sat by Pulse 100 99 100 Oximetry 12/13/17 12/13/17 12/13/17 03:28 03:30 03:55 Temperature Pulse Rate Respiratory Rate Blood Pressure 95/49 98/40 83/44 O2 Sat by Pulse 100 Oximetry 12/13/17 12/13/17 12/13/17 04:00 04:15 04:30 Temperature Pulse Rate Respiratory Rate Blood Pressure 95/44 95/44 108/53 O2 Sat by Pulse 100 100 100 Oximetry 12/13/17 12/13/17 12/13/17 04:45 05:00 05:08 Temperature Pulse Rate 99 H Respiratory Rate Blood Pressure 82/41 95/46 O2 Sat by Pulse 100 100 Oximetry ED Medical Decision Making - Lab Data Result diagrams: 12/12/17 21:11 - Medical Decision Making The patient was seen and examined by myself. The patient is placed on a gambling monitor and continuous pulse ox. On initial evaluation, the patient was found to be in no distress. Evaluation orders were placed. The patient is given 1 L normal saline fluid bolus for treatment of dehydration and lightheadedness. Lab results are reassuring including non-concerning levels of RBC, hemoglobin, hematocrit, platelets, wet prep, and negative test. The patient was reevaluated and reported that their symptoms were improved. The patient has no active vaginal bleeding and she is found to have normal heart rate and blood pressure. As the patient has non-concerning levels of RBC , hemoglobin, hematocrit, platelets, with normal vital signs, and there is no evidence of severe bleeding requiring transfusion or other emergent management at this time, the patient is stable for discharge with outpatient follow-up. Additionally the patient has an appointment scheduled with her DOORPERSON and 2 days for consultation regarding hysterectomy. The patient is given follow-up and return instructions. The patient expressed understanding and agreed with the plan. The patient is discharged in stable condition. Critical care attestation.: If time is entered above; I have spent that time in minutes in the direct care of this critically ill patient, excluding procedure time. ED Disposition Clinical Impression: Vaginal bleeding, Orthostatic lightheadedness, Dehydration, mild Fibroids Qualifiers: Uterine leiomyoma location: unspecified location Qualified Code(s): D25.9 - Leiomyoma of uterus, unspecified Disposition: DC- TO HOME OR SELFCARE Is pt being admited?: No Does the pt Need Aspirin: No Condition: Stable Instructions: Uterine Fibroids (ED) Referrals: HARITHA GARRETT MD [Primary Care Provider] - 3-5 Days Time of Disposition: 05:14
== END 2017-12-13 05:51 | disposition home or self-care (01) ==
LOC: ED 20:09
DX: E86.0 Dehydration (principal); R42 Dizziness and giddiness; D25.9 Leiomyoma of uterus, unspecified; N93.9 Abnormal uterine and vaginal bleeding, unspecified; J45.909 Unspecified asthma, uncomplicated; G89.29 Other chronic pain; Z86.2 Personal history of diseases of the blood and blood-forming organs and certain disorders involving the immune mechanism
CPT/HCPCS: 36415; 81001; 84702; 85025; 86850; 86900; 86901; 96360; 99284; J7030

== ENCOUNTER 2018-02-08 13:11 | Emergency (ER) | payer MEDICAID ==
[2018-02-08] MEDS ORDERED: ASPIRIN PO ONE (15:09)
--- NOTE | 2018-02-08 15:15 | Emergency Department Report ---
Blank Doc - Documentation Documentation: patient is here with chest pain, sob, intermittent since wednesday 3 days ago. patient had hysterectomy on 12/28/17 in [facility]. she describes the pain as tightness, 3/10, without radiation. patient states pain is worse when laying flat, denies leg swelling. no n/v, no diaphoresis. patient also states after her surgery she has fluid build up in pelvis.
[2018-02-08 15:33] LABS: Basophils % (Auto) 0.5 % (0.0-1.8); Eosinophils # (Auto) 0.1 K/mm3 (0.0-0.4); Eosinophils % (Auto) 1.4 % (0.0-4.3); Hematocrit 31.4 % (30.3-42.9); Lymphocytes # (Auto) 1.6 K/mm3 (1.2-5.4); Lymphocytes % (Auto) 25.6 % (13.4-35.0); Mean Corpuscular HGB Conc 32 % (30-34); Mean Corpuscular Volume 77 fl (79-97); Monocytes # (Auto) 0.7 K/mm3 (0.0-0.8); Monocytes % (Auto) 11.5 % (0.0-7.3); Platelet Count 295 K/mm3 (140-440); Red Blood Count 4.08 M/mm3 (3.65-5.03); Red Cell Distribution Width 17.7 % (13.2-15.2)
[2018-02-08 15:43] LABS: Mean Corpuscular Hemoglobin 25 pg (28-32); Partial Thromboplastin Time 29.3 Sec. (24.2-36.6)
[2018-02-08 15:50] LABS: Alanine Aminotransferase 7 units/L (7-56); BUN/Creatinine Ratio 12; Blood Urea Nitrogen 6 mg/dL (7-17); Calcium 8.8 mg/dL (8.4-10.2); Hemolysis Index 2
--- NOTE | 2018-02-08 16:21 | Emergency Department Report ---
HPI - General Chief Complaint: Arrhythmia/Palpitations Time Seen by Provider: 02/08/18 15:08 - HPI HPI: 47-year-old female presents to the emergency department with a complaint of some palpitations and some chest soreness that happens about every other night when she is trying to lay flat. When she is sitting upright or walking around she does not have these symptoms. Sometimes the symptoms will last for a little while when she first gets up. This is been going on since she had a hysterectomy on December 31 throughout prehospital. She was told after the hysterectomy that she had a "fluid positive" and she is just trying to make sure that this is not related to her current symptoms. She denies any fever, cough, nausea, vomiting, diaphoresis. She has a past medical history of fibroids and anemia that led to her hysterectomy, as well as chronic back pain from multiple herniated disks. She has not taken anything for her current symptoms prior to presentation. She denies any tobacco or illicit drug use or abuse. No recent travel or sick contacts at home. 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 Fibroids, anemia, 5 herniated discs - Surgical History Additional Surgical History: hysterectomy - Social History Smoking Status: Never Smoker Substance Use Type: None - Medications Home Medications: Home Medications Medication Instructions Recorded Confirmed Last Taken Type Cyclobenzaprine [Flexeril 10 MG 10 mg PO BID PRN 07/05/16 02/08/18 02/20/17 History TAB] Pregabalin [Lyrica] 75 mg PO QDAY 07/05/16 02/08/18 02/20/17 History ED Review of Systems ROS: Stated complaint: POST HYSTORECTOMY PAIN Other details as noted in HPI Comment: All other systems reviewed and negative Constitutional: denies: chills, fever Eyes: denies: eye pain, eye discharge, vision change ENT: denies: ear pain, throat pain Respiratory: denies: cough, wheezing Cardiovascular: chest pain (intermittent), palpitations (intermittent) Gastrointestinal: denies: abdominal pain, nausea, diarrhea Genitourinary: denies: urgency, dysuria, discharge Musculoskeletal: denies: back pain, joint swelling, arthralgia Skin: denies: rash, lesions Neurological: denies: headache, weakness, paresthesias Physical Exam - Physical Exam Vital Signs: Vital Signs 02/08/18 14:01 Temperature 98.4 F Pulse Rate 88 Respiratory 18 Rate Blood Pressure 125/64 O2 Sat by Pulse 100 Oximetry Physical Exam: GENERAL: The patient is well-developed well-nourished. HENT: Normocephalic. Atraumatic. Patient has moist mucous membranes. EYES: Extraocular motions are intact. Pupils equal reactive to light bilaterally. NECK: Supple. Trach is midline. CHEST/LUNGS: Clear to auscultation. There is no respiratory distress noted. HEART/CARDIOVASCULAR: Regular. There is no tachycardia. There is no murmur. ABDOMEN: Abdomen is soft, nontender. Patient has normal bowel sounds. There is no abdominal distention. SKIN: Skin is warm and dry. No significant lower extremity edema. NEURO: The patient is awake, alert, and oriented. The patient is cooperative. The patient has no focal neurologic deficits. The patient has normal speech and gait. MUSCULOSKELETAL: There is no tenderness or deformity. There is no limitation range of motion. There is no evidence of acute injury. ED Course Vital Signs 02/08/18 14:01 Temperature 98.4 F Pulse Rate 88 Respiratory 18 Rate Blood Pressure 125/64 O2 Sat by Pulse 100 Oximetry ED Medical Decision Making - Lab Data Result diagrams: 02/08/18 15:17 02/08/18 15:17 - EKG Data -: EKG Interpreted by Me EKG shows normal: sinus rhythm, axis, intervals, QRS complexes, ST-T waves Rate: normal - EKG Data When compared to previous EKG there are: no significant change Interpretation: unchanged when compared t (11/28/17) - Radiology Data Radiology results: image reviewed interpreted by me: Chest x-ray does not show any acute process. There are no pleural effusions, obvious pneumonia and there is no pneumothorax. - Medical Decision Making The patient's workup has been mostly benign. Labs do not show any significant abnormalities including no electrolyte abnormalities, she has a negative troponin and low BNP. EKG does not show any ST elevation FL or dysrhythmia. Chest x-ray does not show any pleural effusions, pneumonia or any other acute process. Her symptoms occur mostly when she is trying to sleep and laying flat about every other night and she does not currently have any symptoms. She appears safe for discharge home at this time. She will follow-up with her primary care physician and has been given a referral for cardiology. She'll return to the ER with any worsening of her symptoms or any acute distress. - Differential Diagnosis CHF, FL, dysrhythmia, electrolyte abnormalities Critical Care Time: No Critical care attestation.: If time is entered above; I have spent that time in minutes in the direct care of this critically ill patient, excluding procedure time. ED Disposition Clinical Impression: Intermittent chest pain, Palpitations Disposition: TO HOME OR SELFCARE Is pt being admited?: No Condition: Stable Instructions: Chest Pain (ED), Palpitations (ED) Additional Instructions: Please follow-up with your primary care physician in the next few days. I have given him a referral for a local cigarette and filter chief inspector, Dr. Denson, to follow up regarding your palpitations and intermittent chest pains with laying flat. Return to the emergency department with any worsening of your symptoms or any acute distress. Referrals: PRIMARY MD MARK [Primary Care Provider] - 3-5 Days JOHN DENSON MD [Staff Physician] - 3-5 Days Time of Disposition: 17:00
--- NOTE | 2018-02-08 17:08 | XRay Report ---
FINAL REPORT EXAM: XR CHEST ROUTINE 2V HISTORY: SOB TECHNIQUE: Two view chest PA and lateral PRIORS: None. FINDINGS: Cardiac and mediastinal contours are unremarkable. No focal pulmonary infiltrate is identified. No pleural fluid collection seen. Pulmonary vasculature is unremarkable. IMPRESSION: Negative two-view chest
[2018-02-08 18:31] VITALS: BP 115/51
== END 2018-02-08 17:45 | disposition home or self-care (01) ==
LOC: ED 13:11
DX: R07.89 Other chest pain (principal); J45.909 Unspecified asthma, uncomplicated; M54.9 Dorsalgia, unspecified; G89.29 Other chronic pain; Z90.710 Acquired absence of both cervix and uterus
CPT/HCPCS: 36415; 71046; 80053; 83880; 84484; 85025; 85379; 85610; 85730; 93005; 93010; 99284

== ENCOUNTER 2018-12-05 11:16 | Emergency (ER) | payer MEDICAID ==
--- NOTE | 2018-12-05 11:39 | Emergency Department Report ---
Blank Doc - Documentation Documentation: This is a 48-year-old female that presents with intermittent left chest pain. Patient denies any SOB. Denies any radiation. This initial assessment diagnostic orders/clinical plan/treatment(s) is/are subject to change based on patient's health status, clinical progression and re- assessment by fellow clinical providers in the ED. Further treatment and workup at subsequent clinical providers discretion. Patient/guardians urged not to elope from ED s their condition may be serious if not clinically assessed and managed. Initial orders include: 1-Patient sent to [facility] for further evaluation and treatment 2- EKG 3- Labs
[2018-12-05 11:41] VITALS: BP 105/70
[2018-12-05 12:14] LABS: Basophils % (Auto) 0.4 % (0.0-1.8); Eosinophils # (Auto) 0.1 K/mm3 (0.0-0.4); Eosinophils % (Auto) 1.3 % (0.0-4.3); Hematocrit 38.1 % (30.3-42.9); Hemoglobin 12.7 gm/dl (10.1-14.3); Lymphocytes # (Auto) 1.3 K/mm3 (1.2-5.4); Lymphocytes % (Auto) 22.7 % (13.4-35.0); Mean Corpuscular HGB Conc 33 % (30-34); Mean Corpuscular Volume 87 fl (79-97); Monocytes # (Auto) 0.6 K/mm3 (0.0-0.8); Monocytes % (Auto) 9.9 % (0.0-7.3); Platelet Count 201 K/mm3 (140-440); Red Blood Count 4.36 M/mm3 (3.65-5.03); Red Cell Distribution Width 13.9 % (13.2-15.2)
[2018-12-05 12:51] LABS: BUN/Creatinine Ratio 22; Blood Urea Nitrogen 13 mg/dL (7-17); Calcium 8.3 mg/dL (8.4-10.2); Hemolysis Index 9
--- NOTE | 2018-12-05 14:19 | XRay Report ---
FINAL REPORT EXAM: XR CHEST ROUTINE 2V HISTORY: Chest Pain TECHNIQUE: Chest, two views PRIORS: 02/08/2018 FINDINGS: The heart size is normal. Mediastinal contours are normal. Pulmonary vasculature is not congested. The lungs are clear. There are no pleural effusion seen. There is no evidence of pneumothorax. IMPRESSION: There is no acute abnormality identified.
--- NOTE | 2018-12-05 15:35 | Emergency Department Report ---
ED Chest Pain HPI - General Chief Complaint: Chest Pain Stated Complaint: CHEST/BACK SORENESS/RUSS Time Seen by Provider: 12/05/18 11:37 Source: patient Mode of arrival: Ambulatory Limitations: No Limitations - History of Present Illness Initial Comments: This is a 48-year-old female who presents to ED complaining of chest pain with some shortness of breath for the past one week. Patient states for the past week she's been having pain localized to her chest and sometimes fell back. Patient also states that she is short of breath from time to time without exertion. Patient also states she has a 10 year history of asthma as long as well as sinus allergies which makes her sometimes difficult to take in full breath of air. She denies any trauma/fall/dizziness or headache. Severity scale (0 -10): 7 - Related Data Home Medications Medication Instructions Recorded Confirmed Last Taken Cyclobenzaprine [Flexeril 10 MG 10 mg PO BID PRN 07/05/16 02/08/18 02/20/17 TAB] Pregabalin [Lyrica] 75 mg PO QDAY 07/05/16 02/08/18 02/20/17 Previous Rx's Medication Instructions Recorded Last Taken Type ALBUTEROL Inhaler(NF) [VENTOLIN 12 puff IH PRN #1 inha 12/05/18 Unknown Rx Inhaler(NF)] Loratadine [Claritin] 10 mg PO DAILY #30 tablet 12/05/18 Unknown Rx Naproxen [Naprosyn] 500 mg PO BID #30 tablet 12/05/18 Unknown Rx Allergies Allergy/AdvReac Type Severity Reaction Status Date / Time No Known Allergies Allergy Unverified 03/30/15 13:51 Heart Score - HEART Score History: Moderately suspicious EKG: Non-specific Age: 45-65 Risk factors: No known risk factors Troponin: < normal limit HEART Score: 3 - Critical Actions Critical Actions: 0-3 pts:0.9-1.7%risk of adverse cardiac event.Candidate for discharge ED Review of Systems ROS: Stated complaint: CHEST/BACK SORENESS/RUSS Other details as noted in HPI ED Past Medical Hx - Past Medical History Hx Congestive Heart Failure: No Hx Diabetes: No Hx Asthma: Yes (last flare-up 9years ago) Hx COPD: No Additional medical history: 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 Fibroids, anemia with anemia, 5 herniated discs - Surgical History Additional Surgical History: partial hysterectomy - Social History Smoking Status: Never Smoker Substance Use Type: None - Medications Home Medications: Home Medications Medication Instructions Recorded Confirmed Last Taken Type Cyclobenzaprine [Flexeril 10 MG 10 mg PO BID PRN 07/05/16 02/08/18 02/20/17 History TAB] Pregabalin [Lyrica] 75 mg PO QDAY 07/05/16 02/08/18 02/20/17 History ALBUTEROL Inhaler(NF) [VENTOLIN 12 puff IH PRN #1 inha 12/05/18 Unknown Rx Inhaler(NF)] Loratadine [Claritin] 10 mg PO DAILY #30 tablet 12/05/18 Unknown Rx Naproxen [Naprosyn] 500 mg PO BID #30 tablet 12/05/18 Unknown Rx ED Physical Exam - General Limitations: No Limitations ED Course Vital Signs 12/05/18 11:37 Temperature 98 F Pulse Rate 70 Respiratory 18 Rate Blood Pressure 105/70 O2 Sat by Pulse 98 Oximetry EL score - El Score Age > 65: (0) No Aspirin use within the Past 7 Days: (0) No 3 or more CAD Risk Factors: (0) No 2 or more Angina events in past 24 hrs: (0) No Known CAD with more than 50% Stenosis: (0) No Elevated Cardiac Markers: (0) No ST Deviation Greater than 0.5mm: (0) No EL Score: 0 ED Medical Decision Making - Lab Data Result diagrams: 12/05/18 11:55 12/05/18 11:55 - Radiology Data Radiology results: report reviewed, image reviewed FINAL REPORT EXAM: XR CHEST ROUTINE 2V HISTORY: Chest Pain TECHNIQUE: Chest, two views PRIORS: 02/08/2018 FINDINGS: The heart size is normal. Mediastinal contours are normal. Pulmonary vasculature is not congested. The lungs are clear. There are no pleural effusion seen. There is no evidence of pneumothorax. IMPRESSION: There is no acute abnormality identified. Transcribed By: NADEGE Dictated By: SERA AVENDAÑO MD Electronically Authenticated By: SERA AVENDAÑO MD Signed Date/Time: 12/05/18 3242 - Medical Decision Making 48-year-old female presents with chest pain Is within normal limits, d-dimer negative, troponin negative Discussed the patient to follow up with loan processor as well as her primary care physician. Vital signs are normal she is in no acute distress. Patient understands all instructions given. Critical care attestation.: If time is entered above; I have spent that time in minutes in the direct care of this critically ill patient, excluding procedure time. ED Disposition Clinical Impression: Chest wall pain Disposition: DC-01 TO HOME OR SELFCARE Is pt being admited?: No Does the pt Need Aspirin: No Condition: Stable Instructions: Chest Pain (ED), Costochondritis (ED) Additional Instructions: Make sure to follow up with the primary care physician as discussed. Take all your medications as you've been prescribed. If you have any worsening symptoms or develop new symptoms please return to ED immediately. Prescriptions: ALBUTEROL Inhaler(NF) [VENTOLIN Inhaler(NF)] 12 puff IH PRN #1 inha Loratadine [Claritin] 10 mg PO DAILY #30 tablet Naproxen [Naprosyn] 500 mg PO BID #30 tablet Referrals: SALVADOR LEVINE MD [Primary Care Provider] - 3-5 Days JACQUELINE GARCIA MD [Staff Physician] - 3-5 Days Forms: Work/School Release Form(ED) Time of Disposition: 17:35
[2018-12-05] MEDS ORDERED: IBUPROFEN PO ONE (16:29)
== END 2018-12-05 17:44 | disposition home or self-care (01) ==
LOC: ED 11:16
DX: R07.89 Other chest pain (principal); J45.909 Unspecified asthma, uncomplicated
CPT/HCPCS: 36415; 71046; 80048; 84484; 85025; 85379; 93005; 93010

== ENCOUNTER 2019-11-27 12:18 | Emergency (ER) | payer MEDICAID ==
--- NOTE | 2019-11-27 12:33 | Event Note ---
ED Screening Note ED Screening Note: neck and back pain for 15 years, Dr. Mikala Marshall PCP [facility], cyclobenzaprine and flexeril no relief, severe 10/10 pain This initial assessment/diagnostic orders/clinical plan/treatment(s) is/are subject to change based on patients health status, clinical progression and re- assessment by fellow clinical providers in the ED. Further treatment and workup at subsequent clinical providers discretion. Patient/guardian urged not to elope from the ED as their condition may be serious if not clinically assessed and managed. Initial orders include: to room for treatment
[2019-11-27 12:47] VITALS: BP 106/82
[2019-11-27] MEDS ORDERED: KETOROLAC 60 MG/2 ML INJ IM ONE (13:00)
--- NOTE | 2019-11-27 13:02 | Emergency Department Report ---
ED Back Pain/Injury HPI - General Chief Complaint: Back Pain/Injury Stated Complaint: DISC HURTING/STOMACH PAIN Time Seen by Provider: 11/27/19 12:59 Source: patient Mode of arrival: Ambulatory Limitations: No Limitations - History of Present Illness Initial Comments: This is a 49-year-old -[place] female who presents to the emergency room with low back pain since yesterday. Patient reports a history of herniated disks to lumbar and cervical spine. States she was sitting on the toilet and when she attempted to get up her back went out on yesterday. States she is taking Lyrica and cyclobenzaprine as usual with no change of symptoms. States her primary care doctor is Dr. Mikala Marshall in [facility]. She is currently not seeing an orthopedic surgeon or pain management doctor at this time. Patient states pain is worse with movement. Denies radiating pain, numbness or tingling, weakness, recent injury. MD Complaint: back pain Onset/Timin -: days(s) Similar Symptoms Previously: Yes Place: home Radiation: none Severity: severe Severity scale (0 -10): 10 Quality: stabbing, aching Consistency: intermittent Improves With: immobilization Worsens With: movement, supine Associated Symptoms: difficulty walking. denies: numbness, difficulty urinating, incontinence, fever/chills Treatments Prior to Arrival: prescription analgesics, other medications - Related Data Home Medications Medication Instructions Recorded Confirmed Last Taken Cyclobenzaprine [Flexeril 10 MG 10 mg PO BID PRN 07/05/16 02/08/18 02/20/17 TAB] Pregabalin 75 mg PO QDAY 07/05/16 02/08/18 02/20/17 Previous Rx's Medication Instructions Recorded Last Taken Type ALBUTEROL Inhaler(NF) [VENTOLIN 12 puff IH PRN #1 inha 12/05/18 Unknown Rx Inhaler(NF)] Loratadine (Nf) [Claritin] 10 mg PO DAILY #30 tablet 12/05/18 Unknown Rx Naproxen [Naprosyn] 500 mg PO BID #30 tablet 12/05/18 Unknown Rx Diclofenac Potassium 50 mg PO TID PRN #30 tablet 11/27/19 Unknown Rx Allergies Allergy/AdvReac Type Severity Reaction Status Date / Time No Known Allergies Allergy Unverified 03/30/15 13:51 ED Review of Systems ROS: Stated complaint: DISC HURTING/STOMACH PAIN Other details as noted in HPI Constitutional: denies: chills, fever Respiratory: denies: cough, shortness of breath, wheezing Cardiovascular: denies: chest pain, palpitations Gastrointestinal: denies: abdominal pain, nausea, diarrhea Musculoskeletal: back pain. denies: joint swelling, arthralgia Skin: denies: rash, lesions Neurological: denies: headache, weakness, paresthesias Psychiatric: denies: anxiety, depression ED Past Medical Hx - Past Medical History 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 Fibroids, anemia with anemia, 5 herniated discs Family history: no significant family history ED Back Pain Physical Exam - Exam General: Vital signs noted. No distress. Alert and acting appropriately. Back/Abdomen: Yes Sacroiliac Tenderness (bilatral L-spine TTP, no step-off, no midline tenderness, no deformity), Yes Straight Leg Raise Pain (right leg), No Abdominal Tenderness, No Perithoracic Tenderness, No Perilumbar Tenderness, No Flank Tenderness Neuro: Yes Normal Sensation, Yes Normal DTR's, Yes Normal Gait, No Motor Weakness ED Course Vital Signs 11/27/19 12:45 Temperature 98.2 F Pulse Rate 80 Respiratory 16 Rate Blood Pressure 106/82 O2 Sat by Pulse 98 Oximetry ED Medical Decision Making - Medical Decision Making 49-year-old female complaining of low back pain. Patient was examined by me. Patient is nontoxic appearing and stable. Vitals are normal. Past medical history of herniated disc of cervical and L-spine. Denies change in urinary or bowel pattern. Given history, exam, and work-up, there is low suspicion for spine fracture or other acute spinal syndrome. This is most likely acute on chronic low back pain. Imaging offered and patient refused at this time. Given Toradol 30 mg IM once. Monitoring for 1 hour and patient reports improve pain. Start NSAIDs. Instructed to continue Flexeril and Lyrica prescribed by PCP. Referral to Ortho for continued care. Patient discharged with prompt follow-up with primary care physician. Patient given strict return instructions. Discharged home stable. Critical care attestation.: If time is entered above; I have spent that time in minutes in the direct care of this critically ill patient, excluding procedure time. ED Disposition Clinical Impression: DJD (degenerative joint disease), lumbar Qualifiers: Spinal osteoarthritis complication: with radiculopathy Qualified Code(s): M47.26 - Other spondylosis with radiculopathy, lumbar region Low back pain Qualifiers: Chronicity: acute Back pain laterality: bilateral Sciatica presence: without sciatica Qualified Code(s): M54.5 - Low back pain Disposition: TO HOME OR SELFCARE Is pt being admited?: No Condition: Stable Instructions: Arthralgia (ED), Self-Care Measures with a Chronic Disease (ED), Degenerative Disc Disease (ED) Additional Instructions: Rest Use ice or heat on affected area for 20 minutes and off for 2 hours. Take pain medication as needed for pain. Follow up with Primary Care Provider in 2-3 days. Prescriptions: Diclofenac Potassium 50 mg PO TID PRN #30 tablet PRN Reason: Pain , Severe (7-10) Referrals: [facility] [Provider Group] - 3-5 Days [facility] [Provider Group] - 3-5 Days [facility] [Provider Group] - 3-5 Days Forms: Work/School Release Form(ED), Accompanied Note Time of Disposition: 14:40
== END 2019-11-27 15:15 | disposition home or self-care (01) ==
LOC: ED 12:18
DX: M47.26 Other spondylosis with radiculopathy, lumbar region (principal); Z79.899 Other long term (current) drug therapy
CPT/HCPCS: 96372; 99281; J1885